=== PATIENT | male | born 1955 | race Caucasian/White ===

== ENCOUNTER 2021-02-24 15:18 | Inpatient (IN) | payer OTHER ==
[2021-02-24] MEDS ORDERED: ACETAMINOPHEN 500 MG TAB ONE ×2 (16:29→18:54)
--- NOTE | 2021-02-24 18:45 | RAD REPORT ---
EXAM DESCRIPTION: RAD - Chest Single View - 02/24/2021 6:29 pm CLINICAL HISTORY: Cough;Dyspnea COMPARISON: No comparisons FINDINGS: Patchy bile airspace disease predominantly left-sided. The heart size is within normal ibanez its.No acute osseous abnormality. No significant pleural effusions or pneumothorax. IMPRESSION: Moderate patchy bilateral airspace disease concerning for multifocal pneumonia, includin g Covid-19.
[2021-02-24 18:46] LABS: Absolute Lymphocytes (CBC) 0.4 K/uL (0.7-4.9); Basophils % 0.2 % (0-1.3); Hematocrit 45.1 % (39.6-49.0); Lymphocytes % 5.6 % (15.3-44.8); MPV 7.5 fL (7.6-11.3); Protime INR 1.13; RBC Red Blood Cell Count 5.21 M/uL (4.33-5.43)
[2021-02-24] MEDS ORDERED: FAMOTIDINE 20 MG/2 ML VIAL IV ONE (18:53)
[2021-02-24] MEDS ORDERED: CEFTRIAXONE/SWI 1gm 1 GM/10 ML SYR ONE (18:53)
[2021-02-24] MEDS ORDERED: ASPIRIN 325 MG TAB ONE (18:53)
[2021-02-24] MEDS ORDERED: AZITHROMYCIN 500 MG INJ IVPB ONE (18:53)
[2021-02-24] MEDS ORDERED: NA CHLORIDE 0.9% 1,000 ML ONE (18:54)
[2021-02-24 19:02] LABS: ALT/SGPT 46 U/L (12-78); AST/SGOT 65 U/L (15-37); Albumin 3.4 g/dL (3.4-5.0); Alkaline Phosphatase 56 U/L (45-117); BUN Blood Urea Nitrogen 27 mg/dL (7-18); Bicarbonate 26 mmol/L (21-32); Bilirubin Direct 0.5 mg/dL (0-0.2); Bilirubin Total 1.3 mg/dL (0.2-1.0); Ferritin 421.6 ng/mL (26-388); Glucose Level 100 mg/dL (74-106); Magnesium 2.5 mg/dL (1.8-2.4); NT PRO-BNP 116 pg/mL (<125); Potassium 4.1 mmol/L (3.5-5.1); Protein, Total 7.3 g/dL (6.4-8.2); Sodium Level 136 mmol/L (136-145); Troponin (Emerg Dept Use Only) < 0.02 ng/mL (0.0-0.045)
[2021-02-24 19:55] LABS: Blood Morphology Comment NOT SEEN (NOT SEEN); Platelet Estimate ADEQ; White Blood Cell Scan OK (OK)
--- NOTE | 2021-02-24 19:55 | ER ---
Nurse's Notes [facility] Name: Emiliano Verdugo Age: 65 yrs Sex: Male : 1955 Arrival Date: 02/24/2021 Time: 15:23 Bed 14 Private MD: Diagnosis: Coronavirus infection, unspecified;Pneumonia due to SARS-associated coronavirus;Fever, unspecified;Hypoxemia;Obesity, unspecified;Essential (primary) hypertension;Unspecified kidney failure-insufficency Presentation: 02/24 15:43 Chief complaint: Patient states: COVID + on 02/15/21 at [place], was going to get the jl7 Regeneron but Dr. Robertson said no because our oxygen was too low at 89% and he said to come to the ER to get admitted. Evelin the nurse at [facility] spoke with Dr. Grace and he wanted to send us home but they sent us here because we're dehydrated and our sats were low. Coronavirus screen: Vaccine status: Patient reports being unvaccinated. shortness of breath, Client reports previous positive COVID test result. Date of collection: February 15, 2021. Ebola Screen: No symptoms or risks identified at this time. Initial Sepsis Screen: Does the patient meet any 2 criteria? No. Patient's initial sepsis screen is negative. Does the patient have a suspected source of infection? No. Patient's initial sepsis screen is negative. Risk Assessment: Do you want to hurt yourself or someone else? Patient reports no desire to harm self or others. Onset of symptoms was February 16, 2021. 15:43 Method Of Arrival: Wheelchair jl7 15:43 Acuity: ARABELLA 3 jl7 Triage Assessment: 15:55 General: Appears in no apparent distress. uncomfortable, Behavior is calm, cooperative, jl7 appropriate for age. Pain: Denies pain. Neuro: Level of Consciousness is awake, alert, obeys commands, Oriented to person, place, time, situation. Cardiovascular: Patient's skin is warm and dry. Respiratory: Airway is patent Respiratory effort is even, unlabored, Respiratory pattern is symmetrical, tachypnea. Derm: Skin is pink, warm \T\ dry. Historical: - Allergies: 15:55 No Known Allergies; jl7 - PMHx: 15:55 Hypertensive disorder; jl7 - PSHx: 15:55 Bilateral Hip; Right knee; jl7 - Immunization history:: Client reports having NOT received the Covid vaccine. - Social history:: Smoking status: Patient denies any tobacco usage or history of. - Family history:: not pertinent. Screenin:16 Abuse screen: Denies threats or abuse. Denies injuries from another. Nutritional ms4 screening: No deficits noted. Tuberculosis screening: No symptoms or risk factors identified. Fall Risk None identified. Assessment: 23:14 Visitor restriction implemented due to in-person visitations may lead to the ms4 transmission of an infectious agent. Restricted visitation is valid for not more than 5 days unless renewed by the attending provider. The client's visitor/family were updated. Reassessment: Patient appears in no apparent distress at this time. No changes from previously documented assessment. Patient and/or family updated on plan of care and expected duration. Pain level reassessed. General: Appears in no apparent distress. Behavior is calm, cooperative. Pain: Denies pain. Neuro: No deficits noted. Cardiovascular: No deficits noted. Respiratory: Reports shortness of breath cough that is Airway is patent Breath sounds are diminished bilaterally. Vital Signs: 15:43 BP 112 / 69; Pulse 117; Resp 23; Temp 103; Pulse Ox 92% ; Weight 131.54 kg; Height 6 jl7 ft. 0 in. (182.88 cm); Pain 0/10; 23:15 BP 118 / 72; Pulse 84; Resp 22; Temp 98; Pulse Ox 92% on 4 lpm NC; Pain 0/10; ms4 15:43 Body Mass Index 39.33 (131.54 kg, 182.88 cm) jl7 ED Course: 15:23 Patient arrived in ED. ds1 15:48 Triage completed. jl7 15:55 Antipyretic given from triage as ordered by the ER provider. Arm band placed on right jl7 wrist. Patient placed in waiting room, Patient notified of wait time. 17:56 Nabor Alejo MD is Attending Physician. [facility] 18:05 Brenton Dave, BELKYS is Primary Nurse. ch5 18:22 Basic Metabolic Panel Sent. ch5 18:22 CBC with Diff Sent. ch5 18:22 LFT's Sent. ch5 18:22 Magnesium Sent. ch5 18:22 NT PRO-BNP Sent. ch5 18:22 PT-INR Sent. ch5 18:22 Troponin (emerg Dept Use Only) Sent. 5 18:28 XRAY Chest (1 view) In Process Unspecified. EDAR 19:52 Edilberto Augustin DO is Hospitalizing Provider. [facility] 23:16 No provider procedures requiring assistance completed. Inserted saline lock: 20 gauge ms4 in left antecubital area, using aseptic technique. Blood collected. Administered Medications: 18:52 Drug: Rocephin (cefTRIAXone) 1 grams Route: IV; Rate: per protocol; Site: right ch5 antecubital; 18:52 Drug: Pepcid (famotidine) 40 mg Route: IVP; Site: right antecubital; 5 18:52 Drug: Aspirin Chewable Tablet 324 mg Route: PO; 5 18:53 Drug: Tylenol 1000 mg Route: PO; ch5 18:53 Drug: NS 0.9% 1000 ml Route: IV; Rate: 125 ml/hr; Site: right antecubital; ch5 19:32 Drug: Zithromax (azithromycin) 500 mg Route: IVPB; Infused Over: 1 hrs; Site: right ms4 antecubital; 22:05 CANCELLED (Duplicate Order): SOLU-Medrol (methylPrednisoLONE) 125 mg IVP once ms4 22:45 Drug: Lovenox (enoxaparin) 100 mg Route: Sub-Q; Site: right lower abdomen; ms4 22:45 Drug: NS 0.9% 500 ml Route: IV; Rate: bolus; Site: left antecubital; ms4 Outcome: 19:54 Decision to Hospitalize by Provider. [facility] 02/26 15:00 Patient left the ED. 5 Signatures: Dispatcher [employer] EDAR Nabor Alejo MD MD cha Sanford, Demi ds1 Susy Niño RN RN jl7 Gabriela Talavera RN RN ms4 Brenton Dave RN RN ch5 Corrections: (The following items were deleted from the chart) 02/24 15:57 15:55 Allergies: Aspirin; josh moreno
--- NOTE | 2021-02-24 19:55 | EDPHYS ---
[facility] Name: Emiliano Verdugo Age: 65 yrs Sex: Male : 1955 Arrival Date: 02/24/2021 Time: 15:23 Bed 14 Private MD: ED Physician Nabor Alejo HPI: 02/24 19:45 This 65 yrs old Male presents to ER via Wheelchair with complaints of COVID+ sudha Low O2. 19:45 The patient has shortness of breath at rest, with light activity. Onset: The sudha symptoms/episode began/occurred 11 day(s) ago. Duration: The symptoms are continuous, and are steadily getting worse. The patient's shortness of breath has no apparent modifying factors. The patient or guardian reports cough, that is constant, difficulty breathing, flu symptoms, low-grade fever. Modifying factors: The symptoms are alleviated by remaining still, the symptoms are aggravated by nothing. activity, lying flat. Associated signs and symptoms: Pertinent positives: non-productive cough, dizziness, fever, nausea. Severity of symptoms: At their worst the symptoms were moderate in the emergency department the symptoms are worse mildly. The patient or guardian reports airway noise. Historical: - Allergies: 15:55 No Known Allergies; jl7 - PMHx: 15:55 Hypertensive disorder; jl7 - PSHx: 15:55 Bilateral Hip; Right knee; jl7 - Immunization history:: Client reports having NOT received the Covid vaccine. - Social history:: Smoking status: Patient denies any tobacco usage or history of. - Family history:: not pertinent. ROS: 19:45 Eyes: Negative for injury, pain, redness, and discharge, ENT: Negative for injury, sudha pain, and discharge, Neck: Negative for injury, pain, and swelling, Abdomen/GI: Negative for abdominal pain, nausea, vomiting, diarrhea, and constipation, Back: Negative for injury and pain, : Negative for injury, bleeding, discharge, and swelling, MS/Extremity: Negative for injury and deformity, Skin: Negative for injury, rash, and discoloration, Neuro: Negative for headache, weakness, numbness, tingling, and seizure, Psych: Negative for depression, anxiety, suicide ideation, homicidal ideation, and hallucinations, Allergy/Immunology: Negative for hives, rash, and allergies, Endocrine: Negative for neck swelling, polydipsia, polyuria, polyphagia, and marked weight changes, Hematologic/Lymphatic: Negative for swollen nodes, abnormal bleeding, and unusual bruising. 19:45 Constitutional: Positive for chills, fatigue, fever, malaise. 19:45 Cardiovascular: Positive for palpitations. 19:45 Respiratory: Positive for cough, orthopnea, shortness of breath, wheezing, expiratory. 19:45 Neuro: Positive for weakness. Exam: 19:45 Head/Face: Normocephalic, atraumatic. Eyes: Pupils equal round and reactive to light, sudha extra-ocular motions intact. Lids and lashes normal. Conjunctiva and sclera are non-icteric and not injected. Cornea within normal limits. Periorbital areas with no swelling, redness, or edema. ENT: Nares patent. No nasal discharge, no septal abnormalities noted. Tympanic membranes are normal and external auditory canals are clear. Oropharynx with no redness, swelling, or masses, exudates, or evidence of obstruction, uvula midline. Mucous membranes moist. Neck: Trachea midline, no thyromegaly or masses palpated, and no cervical lymphadenopathy. Supple, full range of motion without nuchal rigidity, or vertebral point tenderness. No Meningismus. Chest/axilla: Normal chest wall appearance and motion. Nontender with no deformity. No lesions are appreciated. Abdomen/GI: Soft, non-tender, with normal bowel sounds. No distension or tympany. No guarding or rebound. No evidence of tenderness throughout. Back: No spinal tenderness. No costovertebral tenderness. Full range of motion. Male : Normal genitalia with no discharge or lesions. Skin: Warm, dry with normal turgor. Normal color with no rashes, no lesions, and no evidence of cellulitis. MS/ Extremity: Pulses equal, no cyanosis. Neurovascular intact. Full, normal range of motion. Neuro: Awake and alert, GCS 15, oriented to person, place, time, and situation. Cranial nerves II-XII grossly intact. Motor strength 5/5 in all extremities. Sensory grossly intact. Cerebellar exam normal. Normal gait. Psych: Awake, alert, with orientation to person, place and time. Behavior, mood, and affect are within normal limits. 19:45 Constitutional: The patient appears febrile. 19:45 Cardiovascular: Rate: tachycardic, Rhythm: regular, Pulses: Pulses are 4+ in bilateral radial, brachial, femoral, popliteal, posterior tibial and and dorsalis pedis arteries.. Heart sounds: normal, Edema: is not appreciated, JVD: is not appreciated. 19:45 ECG was reviewed by the Attending Physician. 19:45 Respiratory: the patient does not display signs of respiratory distress, Respirations: labored breathing, that is mild, tachypnea, 23 Breath sounds: decreased breath sounds, that are mild, are scattered, rhonchi, that are mild, are scattered, stridor, is not appreciated, + upper airway congestion. wheezing: expiratory is scattered. 19:45 Musculoskeletal/extremity: DVT Exam: No signs of deep vein thrombosis. no pain, no swelling, no tenderness, negative Homans' sign noted on exam, no appreciated bluish discoloration, no erythema, no increased warmth. Vital Signs: 15:43 BP 112 / 69; Pulse 117; Resp 23; Temp 103; Pulse Ox 92% ; Weight 131.54 kg; Height 6 jl7 ft. 0 in. (182.88 cm); Pain 0/10; 23:15 BP 118 / 72; Pulse 84; Resp 22; Temp 98; Pulse Ox 92% on 4 lpm NC; Pain 0/10; ms4 15:43 Body Mass Index 39.33 (131.54 kg, 182.88 cm) jl7 MDM: 17:57 Patient medically screened. sudha 19:50 Differential diagnosis: Anemia Anxiety Reaction asthma, Bronchitis CHF exacerbation, sudha Chronic Obstructive Pulmonary Disease bronchitis, flu, URI, pneumonia, Pneumothorax pulmonary edema, reactive airway disease, Sepsis. Antibiotic administration: Rocephin and Zithromax given. The patient's [place] Deep Vein Thrombosis Score was calculated as follows: Heart Rate >100 BPM (1.5 Pts) Total Score: 0-2 Pts- Low Risk. Differential Diagnosis: Bronchitis Influenza Upper Respiratory Infection Pharyngitis Asthma Exacerbation Viral Syndrome Pneumonia. The patient's pulmonary embolism risk score was calculated as follows: the patients heart rate is greater than 100 beats per minute (1.5 Pts). Immunization status: Influenza vaccine: Data reviewed: vital signs, nurses notes, lab test result(s), EKG, radiologic studies, plain films. Data interpreted: monitoring tech: rate is 117 beats/min, rhythm is regular, Pulse oximetry: on room air is 92 %. Test interpretation: by ED physician or midlevel provider: ECG, plain radiologic studies. Counseling: I had a detailed discussion with the patient and/or guardian regarding: the historical points, exam findings, and any diagnostic results supporting the discharge/admit diagnosis, lab results, radiology results, the need for further work-up and treatment in the hospital. 02/24 17:59 Order name: Basic Metabolic Panel [facility] 02/24 17:59 Order name: CBC with Diff [facility] 02/24 17:59 Order name: LFT's [facility] 02/24 17:59 Order name: Magnesium [facility] 02/24 17:59 Order name: NT PRO-BNP [facility] 02/24 17:59 Order name: PT-INR [facility] 02/24 17:59 Order name: Troponin (emerg Dept Use Only) [facility] 02/24 17:59 Order name: CRP; Complete Time: 19:08 [facility] 02/24 17:59 Order name: Ferritin; Complete Time: 19:08 [facility] 02/24 17:59 Order name: D-Dimer; Complete Time: 19:13 [facility] 02/24 18:00 Order name: Basic Metabolic Panel; Complete Time: 19:08 [facility] 02/24 18:00 Order name: CBC with Automated Diff [facility] 02/24 18:00 Order name: Liver (Hepatic) Function; Complete Time: 19:08 [facility] 02/24 18:00 Order name: Magnesium; Complete Time: 19:08 [facility] 02/24 18:00 Order name: NT PRO-BNP; Complete Time: 19:08 [facility] 02/24 18:00 Order name: Protime (+INR); Complete Time: 19:13 [facility] 02/24 18:00 Order name: Troponin (Emerg Dept Use Only); Complete Time: 19:08 [facility] 02/24 19:55 Order name: CBC Smear Scan [facility] 02/25 02:41 Order name: CBC with Automated Diff [facility] 02/25 02:44 Order name: D-Dimer [facility] 02/25 02:58 Order name: Comprehensive Metabolic Panel [facility] 02/25 02:58 Order name: Lipid Profile [facility] 02/25 02:58 Order name: C-Reactive Protein [facility] 02/25 02:58 Order name: T4 Free [facility] 02/25 02:58 Order name: Magnesium [facility] 02/25 02:58 Order name: Thyroid Stimulating Hormone [facility] 02/25 02:58 Order name: Ferritin [facility] 02/26 03:13 Order name: CBC with Automated Diff [facility] 02/26 03:15 Order name: D-Dimer [facility] 02/26 03:29 Order name: Comprehensive Metabolic Panel [facility] 02/24 17:59 Order name: XRAY Chest (1 view); Complete Time: 18:47 [facility] 02/24 17:59 Order name: EKG; Complete Time: 18:01 [facility] 02/24 17:59 Order name: Cardiac monitoring; Complete Time: 19:24 [facility] 02/24 17:59 Order name: EKG - Nurse/Tech; Complete Time: 19:24 [facility] 02/24 17:59 Order name: IV Saline Lock; Complete Time: 18:23 [facility] 02/24 17:59 Order name: Labs collected and sent; Complete Time: 18:23 [facility] 02/24 17:59 Order name: O2 Per Protocol; Complete Time: 18:23 [facility] 02/24 17:59 Order name: O2 Sat Monitoring; Complete Time: 18:23 [facility] 02/26 03:29 Order name: C-Reactive Protein [facility] 02/26 03:29 Order name: Magnesium [facility] 02/26 03:29 Order name: Ferritin [facility] EC:45 Rate is 90 beats/min. Rhythm is regular. QRS [place] is Normal. VT interval is normal. QRS sudha interval is normal. QT interval is normal. No Q waves. T waves are Normal. No ST changes noted. Clinical impression: NSR w/ Non-specific ST/T Changes and No evidence of ischemia. Interpreted by me. Reviewed by me. Administered Medications: 18:52 Drug: Rocephin (cefTRIAXone) 1 grams Route: IV; Rate: per protocol; Site: right ch5 antecubital; 18:52 Drug: Pepcid (famotidine) 40 mg Route: IVP; Site: right antecubital; 5 18:52 Drug: Aspirin Chewable Tablet 324 mg Route: PO; ch5 18:53 Drug: Tylenol 1000 mg Route: PO; ch5 18:53 Drug: NS 0.9% 1000 ml Route: IV; Rate: 125 ml/hr; Site: right antecubital; 5 19:32 Drug: Zithromax (azithromycin) 500 mg Route: IVPB; Infused Over: 1 hrs; Site: right ms4 antecubital; 22:05 CANCELLED (Duplicate Order): SOLU-Medrol (methylPrednisoLONE) 125 mg IVP once ms4 22:45 Drug: Lovenox (enoxaparin) 100 mg Route: Sub-Q; Site: right lower abdomen; ms4 22:45 Drug: NS 0.9% 500 ml Route: IV; Rate: bolus; Site: left antecubital; ms4 Disposition Summary: 02/24/21 19:54 Hospitalization Ordered Hospitalization Status: Inpatient Admission sudha Provider: Edilberto Augustin cha Condition: Fair sudha Problem: new sudha Symptoms: have improved sudha Bed/Room Type: Standard sudha Location: [facility] ER HOLD(02/24/21 20:34) Room Assignment: ERHOLD-(02/24/21 20:34) Diagnosis - Coronavirus infection, unspecified sudha - Pneumonia due to SARS-associated coronavirus sudha - Fever, unspecified sudha - Hypoxemia sudha - Obesity, unspecified sudha - Essential (primary) hypertension sudha - Unspecified kidney failure - insufficency sudha Discharge Instructions: - Discharge Summary Sheet ch5 Forms: - Medication Reconciliation Form sudha - SBAR form ch5 Signatures: Dispatcher [employer] EDMS Daysi Tee RN RN mw Anderson, Corey, MD MD cha Attema, Lee, MEDICARE SALES EXECUTIVE-C MEDICARE SALES EXECUTIVE-Cla1 Susy Niño RN RN jl7 Gabriela Talavera RN RN ms4 Brenton Dave RN RN ch5 Corrections: (The following items were deleted from the chart) 15:57 15:55 Allergies: Aspirin; josh jl7 19:29 19:09 Chest For PE Angio+CT.RAD.BRZ ordered. [facility] EDMS 20:34 19:54 Telemetry/MedSurg (Inpatient) sudha mw 20:34 19:54 sudha mw 22:05 19:45 SOLU-Medrol (methylPrednisoLONE) 125 mg IVP once ordered. sudha ms4
--- NOTE | 2021-02-24 21:06 | P.HP ---
Certification for Inpatient Patient admitted to: Inpatient With expected LOS: >2 Midnights Patient will require the following post-hospital care: None Practitioner: I am a practitioner with admitting privileges, knowledge of patient current condition, hospital course, and medical plan of care. Services: Services provided to patient in accordance with Admission requirements found in Title 42 Section 412.3 of the Code of Federal Regulations Patient History Date of Service: 02/24/21 Reason for admission: COVID-19 pneumonia, PRIMITIVO History of Present Illness: 65-year-old male with history of hypertension presents emerged department for shortness of breath. Patient reports testing positive for Covid on 02/15/2021 with worsening shortness of breath since then. Patient was evaluated emergency department found to be mildly hypoxic on room air saturating around 88 to 89%. Labs were significant for D-dimer 845 creatinine 1.61 GFR 44 BUN 27 ferritin 421 C-reactive protein 69.9, patient was given ivermectin, IV steroids in the emergency department, no previous labs available for comparison regards to renal function, ED provider wishes to admit for further evaluation and management of acute kidney injury, COVID-19 pneumonia with hypoxia. - Past Medical/Surgical History -: Hypertension -: Bilateral hip surgery -: Right knee surgery Psychosocial/ Personal History: Lives at home with - Family History Father -: Cancer Mother -: Cancer - Social History Smoking Status: Never smoker Alcohol use: No CD- Drugs: No Caffeine use: Yes Place of Residence: Home Review of Systems 10-point ROS is otherwise unremarkable General: Weakness, Malaise Respiratory: Cough, Dry, Shortness of Breath Physical Examination - Physical Exam General: Alert, In no apparent distress, Oriented x3 HEENT: Atraumatic, PERRLA, Mucous membr. moist/pink, EOMI, Sclerae nonicteric Neck: Supple, 2+ carotid pulse no bruit, No LAD, Without JVD or thyroid abnormality Respiratory: Diminished Cardiovascular: Regular rate/rhythm, Normal S1 S2 Gastrointestinal: Normal bowel sounds, No tenderness Musculoskeletal: No tenderness Integumentary: No rashes Neurological: Normal gait, Normal speech, Normal strength at 5/5 x4 extr, Normal tone, Normal affect Lymphatics: No axilla or inguinal lymphadenopathy - Studies Laboratory Data (last 24 hrs) 02/24/21 18:11: PT 13.0 H, INR 1.13 02/24/21 18:11: WBC 6.40, Hgb 15.4, Hct 45.1, Plt Count 231 02/24/21 18:11: Sodium 136, Potassium 4.1, BUN 27 H, Creatinine 1.61 H, Glucose 100, Magnesium 2.5 H, Total Bilirubin 1.3 H, AST 65 H, ALT 46, Alkaline Phosphatase 56 Assessment and Plan - Plan Assessment: Acute hypoxic respiratory failure secondary to COVID-19 pneumonia Acute kidney injury Hypertension Plan: Acute hypoxic respiratory failure secondary to COVID-19 pneumonia: Continue with IV steroids, oral supplements, ivermectin, supplemental oxygen as needed, daily right saturations, room air saturations for home oxygen, anticipate discharge the next 24 to 48 hours on home oxygen. Appreciate further input from sujatha weems. Acute kidney injury: Likely related to dehydration, continue IV fluids, repeat morning labs. Consult nephrology as necessary for worsening renal function. Hypertension: Obtain and continue medications. DVT PPX: Lovenox Code status: Full Discharge Plan: Home Plan to discharge in: 48 Hours - Advance Directives Does patient have a Living Will: No Does patient have a Durable POA for Healthcare: No - Code Status/Comfort Care Code Status Assessed: Yes (Full code) Critical Care: No Time Spent Managing Pts Care (In Minutes): 55
[2021-02-24] MEDS ORDERED: ACETAMINOPHEN 500 MG TAB PO PRN (21:57)
[2021-02-24] MEDS: ASCORBIC ACID 500 MG TABLET PO SCH (21:57)
[2021-02-24] MEDS: METHYLPREDNISOLONE 40 MG INJ IV SCH (21:57)
[2021-02-24] MEDS ORDERED: BENZONATATE 100 MG CAP PO PRN (21:57)
[2021-02-24] MEDS: NA CHLORIDE 0.9% 1,000 ML IV SCH (21:57)
[2021-02-24] MEDS ORDERED: ONDANSETRON 4 MG/2 ML VIAL IV PRN (21:57)
[2021-02-24] MEDS ORDERED: ATORVASTATIN 20 MG TAB ONE (22:26)
[2021-02-24] MEDS ORDERED: ENOXAPARIN 100 MG/ML SYR SQ ONE (22:29)
[2021-02-24] MEDS: MELATONIN 5 MG TABLET PO PRN (23:46)
[2021-02-25] MEDS ORDERED: MELATONIN 5 MG TABLET PO ONE ×2 (00:05→21:53)
[2021-02-25 02:32] LABS: Absolute Lymphocytes (CBC) 0.3 K/uL (0.7-4.9); Lymphocytes % 5.1 % (15.3-44.8); MPV 7.4 fL (7.6-11.3); RBC Red Blood Cell Count 4.73 M/uL (4.33-5.43)
[2021-02-25 02:58] LABS: Albumin 2.8 g/dL (3.4-5.0); Bilirubin Total 0.9 mg/dL (0.2-1.0); C-Reactive Protein 70.2 mg/L (<3.00); Ferritin 401.6 ng/mL (26-388); Magnesium 2.5 mg/dL (1.8-2.4); Potassium 3.9 mmol/L (3.5-5.1); Protein, Total 6.3 g/dL (6.4-8.2); Thyroid Stimulating Hormone 0.555 uIU/mL (0.360-3.740)
[2021-02-25] MEDS ORDERED: POTASSIUM 25 MEQ EFFERV TAB PO ONE (06:06)
--- NOTE | 2021-02-25 06:36 | P.PN ---
Subjective Date of Service: 02/25/21 Chief Complaint: COVID-19 pneumonia, PRIMITIVO Subjective: Other (Overall stable. Currently on 4 L per nasal cannula) Physical Examination - Vital Signs Blood Pressure: 118/64 Pulse: 67 Respirations: 16 Pulse Ox (%): 93 - Studies Laboratory Data (last 24 hrs) 02/24/21 18:11: PT 13.0 H, INR 1.13 02/24/21 18:11: WBC 6.40, Hgb 15.4, Hct 45.1, Plt Count 231 02/24/21 18:11: Sodium 136, Potassium 4.1, BUN 27 H, Creatinine 1.61 H, Glucose 100, Magnesium 2.5 H, Total Bilirubin 1.3 H, AST 65 H, ALT 46, Alkaline Phosphatase 56 Assessment & Plan Discharge Plan: Home Plan to discharge in: 24 Hours Physician Review Additional Text: COVID: positive CXR: COMPARISON: No comparisons FINDINGS: Patchy bile airspace disease predominantly left-sided. The heart size is within normal limits.No acute osseous abnormality. No significant pleural effusions or pneumothorax. IMPRESSION: Moderate patchy bilateral airspace disease concerning for multifocal pneumonia, including Covid-19. Physical exam: General: Alert, In no apparent distress, Oriented x3 HEENT: Neck supple Respiratory: Clear. Currently on 4 L clear. Cardiovascular: Regular rate/rhythm, Normal S1 S2 Gastrointestinal: Normal bowel sounds, No tenderness Musculoskeletal: No tenderness Integumentary: No rashes Neurological: Normal gait, Normal speech, Normal strength at 5/5 x4 extr, Normal tone, Normal affect Lymphatics: No axilla or inguinal lymphadenopathy Impression: Acute hypoxic respiratory failure secondary to COVID-19 pneumonia Acute kidney injury Hypertension Plan: Acute hypoxic respiratory failure secondary to COVID-19 pneumonia: Patient remained stable at this time. Currently on 4 L per nasal cannula. Continue to wean off oxygen to maintain sats above 93%. Encouraged to spirometer, proning, lying on his side. Continue with IV steroids, oral supplements continue with pulmonology recommendations. Anticipate improvement over the next 24 hours. Acute kidney injury: This has improved with IV fluids. Patient taking good oral intake. Discontinue IV. Hypertension: Obtain and verify home medication. Currently stable off medication at this time. DVT PPX: Lovenox Code status: Full Discharge Plan: Home Time Spent Managing Pts Care (In Minutes): 55
[2021-02-25] MEDS ORDERED: THIAMINE HCL 100 MG TABLET ONE (07:37)
[2021-02-25] MEDS ORDERED: ASPIRIN 81 MG CHEWABLE TABLET ONE (07:37)
[2021-02-25] MEDS ORDERED: ASCORBIC ACID 500 MG TABLET ONE ×4 (07:37→21:53)
[2021-02-25] MEDS ORDERED: VITAMIN D 1000 UNIT TAB ONE ×2 (07:38→10:02)
[2021-02-25] MEDS ORDERED: METHYLPREDNISOLONE 40 MG INJ ONE ×2 (07:38→21:54)
[2021-02-25] MEDS ORDERED: ZINC SULFATE 220 MG CAP ONE (07:38)
[2021-02-25] MEDS ORDERED: ENOXAPARIN 40 MG/0.4 ML SQ ONE (07:39)
[2021-02-25] MEDS: NA CHLORIDE 0.9% 1,000 ML IV SCH (07:57)
[2021-02-25] MEDS: ASPIRIN EC 81 MG TAB PO SCH (08:59)
[2021-02-25] MEDS: THIAMINE HCL 100 MG TABLET PO SCH (09:00)
[2021-02-25] MEDS: VITAMIN D 1000 UNIT TAB PO SCH (09:00)
[2021-02-25] MEDS: ASCORBIC ACID 500 MG TABLET PO SCH ×4 (09:00→21:00)
[2021-02-25] MEDS: ZINC SULFATE 220 MG CAP PO SCH (09:00)
[2021-02-25] MEDS: METHYLPREDNISOLONE 40 MG INJ IV SCH (09:00)
[2021-02-25] MEDS: ENOXAPARIN 40 MG/0.4 ML SQ SCH (09:00)
[2021-02-25] MEDS ORDERED: NA CHLORIDE 0.9% 1,000 ML ONE (09:49)
--- NOTE | 2021-02-25 13:23 | P.PN ---
Subjective Date of Service: 02/25/21 Chief Complaint: COVID-19 pneumonia, PRIMITIVO Subjective: Improving (Doing well better) Review of Systems General: Weakness Respiratory: Shortness of Breath Physical Examination - Vital Signs Temperature: 98.9 F Blood Pressure: 127/69 Pulse: 78 Respirations: 20 Pulse Ox (%): 93 - Physical Exam General: Alert, Oriented x3, Cooperative - Studies Laboratory Data (last 24 hrs) 02/24/21 18:11: PT 13.0 H, INR 1.13 02/24/21 18:11: WBC 6.40, Hgb 15.4, Hct 45.1, Plt Count 231 02/24/21 18:11: Sodium 136, Potassium 4.1, BUN 27 H, Creatinine 1.61 H, Glucose 100, Magnesium 2.5 H, Total Bilirubin 1.3 H, AST 65 H, ALT 46, Alkaline Phosphatase 56 Assessment & Plan - Problems (Diagnosis) (1) COVID-19 Current Visit: Yes Status: Acute Plan: Age 65 AW COVID penumonia/ Doitn well/ labs reviewed/ Renal fucntion improving/ Plan to DC home/ Pt has Decadron and ivermectin at home
[2021-02-25] MEDS: METHYLPREDNISOLONE 125 MG INJ IV SCH (21:00)
[2021-02-25] MEDS ORDERED: ATORVASTATIN 20 MG TAB PO SCH (21:00)
[2021-02-25] MEDS: MELATONIN 5 MG TABLET PO PRN (21:32)
[2021-02-25] MEDS ORDERED: ATORVASTATIN 20 MG TAB ONE (21:53)
[2021-02-26 00:45] VITALS: BMI 39.0
[2021-02-26 03:09] LABS: Absolute Lymphocytes (CBC) 0.2 K/uL (0.7-4.9); Basophils % 0.5 % (0-1.3); Hematocrit 40.9 % (39.6-49.0); MPV 7.6 fL (7.6-11.3); RBC Red Blood Cell Count 4.77 M/uL (4.33-5.43)
[2021-02-26 03:28] LABS: Albumin 2.8 g/dL (3.4-5.0); Bilirubin Total 0.6 mg/dL (0.2-1.0); Ferritin 450.1 ng/mL (26-388); Magnesium 2.5 mg/dL (1.8-2.4); Potassium 4.3 mmol/L (3.5-5.1); Protein, Total 6.5 g/dL (6.4-8.2)
[2021-02-26 05:25] VITALS: BP 147/84; TEMP 98.9
--- NOTE | 2021-02-26 06:15 | P.PN ---
Subjective Date of Service: 02/26/21 Chief Complaint: COVID-19 pneumonia, PRIMITIVO Subjective: Improving (Currently on 3 L) Physical Examination - Vital Signs Temperature: 98.9 F Blood Pressure: 147/84 Pulse: 74 Respirations: 20 Pulse Ox (%): 94 Assessment & Plan Discharge Plan: Home Plan to discharge in: 24 Hours Physician Review Additional Text: COVID: positive CXR: COMPARISON: No comparisons FINDINGS: Patchy bile airspace disease predominantly left-sided. The heart size is within normal limits.No acute osseous abnormality. No significant pleural effusions or pneumothorax. IMPRESSION: Moderate patchy bilateral airspace disease concerning for multifocal pneumonia, including Covid-19. Physical exam: General: Alert, In no apparent distress, Oriented x3 HEENT: Neck supple Respiratory: Clear. Doing well. Currently on 3 L Cardiovascular: Regular rate/rhythm, Normal S1 S2 Gastrointestinal: Normal bowel sounds, No tenderness Musculoskeletal: No tenderness Integumentary: No rashes Neurological: Normal gait, Normal speech, Normal strength at 5/5 x4 extr, Normal tone, Normal affect Lymphatics: No axilla or inguinal lymphadenopathy Impression: Acute hypoxic respiratory failure secondary to COVID-19 pneumonia Acute kidney injury Hypertension Plan: Acute hypoxic respiratory failure secondary to COVID-19 pneumonia: Patient doing well at this time. Currently on 3 L. Will plan for discharge today. Acute kidney injury: This has improved with IV fluids. Patient taking good oral intake. Discontinue IV. Hypertension: Obtain and verify home medication. Currently stable off medication at this time. DVT PPX: Lovenox Code status: Full Discharge Plan: Home Time Spent Managing Pts Care (In Minutes): 55
[2021-02-26] MEDS ORDERED: METHYLPREDNISOLONE 125 MG INJ ONE (07:47)
[2021-02-26] MEDS ORDERED: ASPIRIN 81 MG CHEWABLE TABLET ONE (07:48)
[2021-02-26] MEDS ORDERED: ZINC SULFATE 220 MG CAP ONE (07:48)
[2021-02-26] MEDS ORDERED: ASCORBIC ACID 500 MG TABLET ONE ×2 (07:48→13:12)
[2021-02-26] MEDS ORDERED: THIAMINE HCL 100 MG TABLET ONE (07:48)
[2021-02-26] MEDS ORDERED: VITAMIN D 1000 UNIT TAB ONE (07:48)
[2021-02-26] MEDS ORDERED: ENOXAPARIN 40 MG/0.4 ML SQ ONE (07:49)
[2021-02-26] MEDS ORDERED: ACETAMINOPHEN 500 MG TAB ONE (08:08)
[2021-02-26] MEDS: ENOXAPARIN 40 MG/0.4 ML SQ SCH (08:37)
[2021-02-26] MEDS: ASPIRIN EC 81 MG TAB PO SCH (08:37)
[2021-02-26] MEDS: THIAMINE HCL 100 MG TABLET PO SCH (08:38)
[2021-02-26] MEDS: METHYLPREDNISOLONE 125 MG INJ IV SCH (08:38)
[2021-02-26] MEDS: ASCORBIC ACID 500 MG TABLET PO SCH ×2 (08:38→13:00)
[2021-02-26] MEDS: VITAMIN D 1000 UNIT TAB PO SCH (08:38)
[2021-02-26] MEDS: ZINC SULFATE 220 MG CAP PO SCH (08:38)
[2021-02-26 11:49] VITALS: O2SAT 93
--- NOTE | 2021-02-26 12:44 | P.DS ---
Admission Date: 02/24/21 Discharge Date: 02/26/21 Primary Care Provider: Dr. Teran Disposition: ROUTINE DISCHARGE Discharge Condition: GOOD Reason for Admission: COVID-19 pneumonia, PRIMITIVO Consultations: Pulmonary-Dr. Grace Procedures: COVID: positive CXR: COMPARISON: No comparisons FINDINGS: Patchy bile airspace disease predominantly left-sided. The heart size is within normal limits.No acute osseous abnormality. No significant pleural effusions or pneumothorax. IMPRESSION: Moderate patchy bilateral airspace disease concerning for multifocal pneumonia, including Covid-19. Medical problem list: Acute hypoxic respiratory failure secondary to COVID-19 pneumonia Acute kidney injury Hypertension Brief History of Present Illness: 65-year-old male with history of hypertension presented with shortness of breath. Patient tested positive for COVID-19 on 02/15/2021. His shortness of breath worsened. Patient was evaluated in the emergency room. Patient was admitted for Covid pneumonia with hypoxia. Acute renal injury also noted due to poor intake. Hospital Course: Patient presented with acute hypoxic respiratory failure secondary to COVID pneumonia. Patient was hospitalized. Patient required IV steroids with supplementation. Patient continued to do well with oxygen. His oxygen has been weaned down to 3 L. Patient able to ambulate. Shortness of breath improved. At discharge home oxygen will be arranged. At discharge patient will continue with home oxygen at 3 L. Maintain oxygenation above 93%. At discharge patient will also continue with prednisone 20 mg 1 pill twice daily for 7 days then 1 pill once daily for 7 days. The patient will continue with aspirin 81 mg daily. The patient will also continue with Tessalon Perles 1 pill 3 times a day as needed for cough. A limited supply will be provided. At discharge patient will continue with vitamin supplementation including vitamin C 500 mg 1 pill 3 times a day, vitamin D 2000 units daily, thiamine 100 mg 1 pill twice daily and zinc 200 mg daily. Patient will continue with CDC guidelines on isolation for at least 10 days. Patient will continue with proning, incentive spirometer use and lying on his side. Patient may need to limit his activities at home. At discharge patient will continue with handwashing, social distancing and facemask use. Recommend follow-up with pulmonology in 1 week to follow-up hospitaliza tion. Pulmonology will continue to help wean the patient off oxygen. Patient also presented with acute renal injury and dehydration. Patient was given IV fluids with improvement. Overall stable at this time. Recommend and encourage oral intake. Patient with history of hypertension. Patient remained off blood pressure medication due to acute renal injury and dehydration. Recommend to monitor blood pressure daily. If his blood pressures remain above 140/90 patient can be restarted on his medication. Maintain blood pressure less than 130/80. Further adjustment in medication can be done with the help of his PCP. May need to hold his blood pressure medication if blood pressure remains less than 110 systolic. Follow-up with PCP to further monitor and address. Vital Signs/Physical Exam: Temp Pulse Resp BP Pulse Ox 98.9 F 74 20 147/84 H 94 02/26/21 12:36 02/26/21 12:36 02/26/21 12:36 02/26/21 12:36 02/26/21 12:36 General: Alert, In no apparent distress, Oriented x3, Cooperative HEENT: Atraumatic Neck: Supple Respiratory: Clear to auscultation bilaterally Cardiovascular: Normal pulses, Regular rate/rhythm Gastrointestinal: Normal bowel sounds, No tenderness, No masses, No rebound, No guarding Musculoskeletal: No erythema, No tenderness, No warmth Integumentary: No tenderness/swelling Neurological: Normal speech, Normal strength at 5/5 x4 extr, Normal tone, Normal affect Laboratory Data at Discharge: WBC 8.80 K/uL (4.3-10.9) D 02/26/21 02:28 Hgb 14.2 g/dL (13.6-17.9) 02/26/21 02:28 Hct 40.9 % (39.6-49.0) 02/26/21 02:28 Plt Count 239 K/uL (152-406) D 02/26/21 02:28 PT 13.0 SECONDS (9.5-12.5) H 02/24/21 18:11 INR 1.13 02/24/21 18:11 Sodium 139 mmol/L (136-145) 02/26/21 02:28 Potassium 4.3 mmol/L (3.5-5.1) 02/26/21 02:28 BUN 24 mg/dL (7-18) H 02/26/21 02:28 Creatinine 0.96 mg/dL (0.55-1.3) 02/26/21 02:28 Glucose 144 mg/dL (74-106) H 02/26/21 02:28 Magnesium 2.5 mg/dL (1.8-2.4) H 02/26/21 02:28 Total Bilirubin 0.6 mg/dL (0.2-1.0) 02/26/21 02:28 AST 54 U/L (15-37) H 02/26/21 02:28 ALT 45 U/L (12-78) 02/26/21 02:28 Alkaline Phosphatase 53 U/L (45-117) 02/26/21 02:28 Triglycerides 134 mg/dL (<150) 02/25/21 02:19 Cholesterol 157 mg/dL (<200) 02/25/21 02:19 HDL Cholesterol 32 mg/dL (40-60) L 02/25/21 02:19 Cholesterol/HDL Ratio 4.91 02/25/21 02:19 Home Medications: Ascorbic Acid [Vitamin C*] 500 mg PO TID #90 tablet 02/26/21 Aspirin [Aspirin EC 81 MG] 81 mg PO DAILY #30 tablet. 02/26/21 Benzonatate [Tessalon Perle*] 100 mg PO TID PRN #15 cap 02/26/21 Cholecalciferol (Vitamin D3) [Vitamin D 1000 Iu Tab*] 2,000 unit PO DAILY #60 tab 02/26/21 Thiamine HCl [Vitamin B-1*] 100 mg PO BID #60 tablet 02/26/21 Zinc Sulfate [Zinc Sulfate*] 220 mg PO DAILY #30 cap 02/26/21 predniSONE [Prednisone*] 20 mg PO SEECOM #21 tab 02/26/21 New Medications: Aspirin [Aspirin EC 81 MG] 81 mg PO DAILY #30 tablet. predniSONE [Prednisone*] 20 mg PO SEECOM #21 tab Benzonatate [Tessalon Perle*] 100 mg PO TID PRN #15 cap PRN Reason: Cough Thiamine HCl [Vitamin B-1*] 100 mg PO BID #60 tablet Ascorbic Acid [Vitamin C*] 500 mg PO TID #90 tablet Cholecalciferol (Vitamin D3) [Vitamin D 1000 Iu Tab*] 2,000 unit PO DAILY #60 tab Zinc Sulfate [Zinc Sulfate*] 220 mg PO DAILY #30 cap Physician Discharge Instructions: Patient presented with acute hypoxic respiratory failure secondary to COVID pneumonia. Patient was hospitalized. Patient required IV steroids with supplementation. Patient continued to do well with oxygen. His oxygen has been weaned down to 3 L. Patient able to ambulate. Shortness of breath improved. At discharge home oxygen will be arranged. At discharge patient will continue with home oxygen at 3 L. Maintain oxygenation above 93%. At discharge patient will also continue with prednisone 20 mg 1 pill twice daily for 7 days then 1 pill once daily for 7 days. The patient will continue with aspirin 81 mg daily. The patient will also continue with Tessalon Perles 1 pill 3 times a day as needed for cough. A limited supply will be provided. At discharge patient will continue with vitamin supplementation including vitamin C 500 mg 1 pill 3 times a day, vitamin D 2000 units daily, thiamine 100 mg 1 pill twice daily and zinc 200 mg daily. Patient will continue with CDC guidelines on isolation for at least 10 days. Patient will continue with proning, incentive spirometer use and lying on his side. Patient may need to limit his activities at home. At discharge patient will continue with handwashing, social distancing and facemask use. Recommend follow-up with pulmonology in 1 week to follow-up hospitalization. Pulmonology will continue to help wean the patient off oxygen. Patient also presented with acute renal injury and dehydration. Patient was given IV fluids with improvement. Overall stable at this time. Recommend and encourage oral intake. Patient with history of hypertension. Patient remained off blood pressure medication due to acute renal injury and dehydration. Recommend to monitor blood pressure daily. If his blood pressures remain above 140/90 patient can be restarted on his medication. Maintain blood pressure less than 130/80. Further adjustment in medication can be done with the help of his PCP. May need to hold his blood pressure medication if blood pressure remains less than 110 systolic. Follow-up with PCP to further monitor and address. Diet: AHA Activity: Ad varsha Followup: Yang Teran MD [Primary Care Provider] - Time spent managing pt's care (in minutes): 55
[2021-02-26] MEDS ORDERED: IVERMECTIN 3 MG TABLET PO ONE (18:00)
== END 2021-02-26 15:14 | disposition home or self-care (01) | DRG 177 ==
LOC: ER 15:18 → ERHOLD 20:14
PROVIDERS: ADMIT Family Medicine; ATTEND Family Medicine
DX: U07.1 COVID-19 (principal); J12.82 Pneumonia due to coronavirus disease 2019; J96.01 Acute respiratory failure with hypoxia; N17.9 Acute kidney failure, unspecified; I10 Essential (primary) hypertension; E86.0 Dehydration
CPT/HCPCS: 36415; 71045; 80048; 80053; 80061; 80076; 82728; 83735; 83880; 84439; 84443; 84484; 85025; 85379; 85610; 86140; 93005; 94010; 94760; 96372; 96374; 96375; 99284; J0456; J0696; J1650; J2920; J2930; J7030

== ENCOUNTER 2021-02-28 11:30 | Inpatient (IN) | payer OTHER ==
[2021-02-28 12:11] LABS: Protime INR 1.12
--- NOTE | 2021-02-28 12:19 | EDPHYS ---
Physician Documentation [facility] Name: Emiliano Verdugo Age: 65 yrs Sex: Male : 1955 Arrival Date: 02/28/2021 Time: 11:46 Bed 18 Private MD: NATALI Physician Nabor Alejo HPI: 02/28 12:10 This 65 yrs old Male presents to ER via Unassigned with complaints of sob, sudha worse covid. 12:10 The patient has shortness of breath at rest, with light activity. Onset: The sudha symptoms/episode began/occurred 2 day(s) ago. Duration: The symptoms are continuous, and are steadily getting worse. The patient's shortness of breath is aggravated by coughing, light activity. The patient presents with a history of heart racing. Context: The symptoms occur with anxiety, with light activity, with strenuous activity. Duration: The patient or guardian reports multiple episodes, that wax and wane. Modifying factors: The symptoms are aggravated by change in position, light activity, strenuous activity. The patient or guardian reports cough, described as moderate, difficulty breathing, flu symptoms, arthralgias, low-grade fever, myalgias. - Immunization history:: Adult Immunizations up to date, Client reports receiving the 2nd dose of the Covid vaccine, unknown. - Family history:: not pertinent. - Social history:: Smoking status: Patient denies any tobacco usage or history of. ROS: 12:10 Eyes: Negative for injury, pain, redness, and discharge, ENT: Negative for injury, sudha pain, and discharge, Neck: Negative for injury, pain, and swelling, Cardiovascular: Negative for chest pain, palpitations, and edema, Abdomen/GI: Negative for abdominal pain, nausea, vomiting, diarrhea, and constipation, Back: Negative for injury and pain, : Negative for injury, bleeding, discharge, and swelling, MS/Extremity: Negative for injury and deformity, Neuro: Negative for headache, weakness, numbness, tingling, and seizure, Psych: Negative for depression, anxiety, suicide ideation, homicidal ideation, and hallucinations, Allergy/Immunology: Negative for hives, rash, and allergies, Endocrine: Negative for neck swelling, polydipsia, polyuria, polyphagia, and marked weight changes, Hematologic/Lymphatic: Negative for swollen nodes, abnormal bleeding, and unusual bruising. 12:10 Constitutional: Positive for fatigue. 12:10 Cardiovascular: Positive for palpitations. 12:10 Respiratory: Positive for cough, "sounds productive", shortness of breath, at rest. Exam: 12:10 Constitutional: This is a well developed, well nourished patient who is awake, alert, sudha and in no acute distress. Head/Face: Normocephalic, atraumatic. Eyes: Pupils equal round and reactive to light, extra-ocular motions intact. Lids and lashes normal. Conjunctiva and sclera are non-icteric and not injected. Cornea within normal limits. Periorbital areas with no swelling, redness, or edema. ENT: Nares patent. No nasal discharge, no septal abnormalities noted. Tympanic membranes are normal and external auditory canals are clear. Oropharynx with no redness, swelling, or masses, exudates, or evidence of obstruction, uvula midline. Mucous membranes moist. Neck: Trachea midline, no thyromegaly or masses palpated, and no cervical lymphadenopathy. Supple, full range of motion without nuchal rigidity, or vertebral point tenderness. No Meningismus. Chest/axilla: Normal chest wall appearance and motion. Nontender with no deformity. No lesions are appreciated. Abdomen/GI: Soft, non-tender, with normal bowel sounds. No distension or tympany. No guarding or rebound. No evidence of tenderness throughout. Back: No spinal tenderness. No costovertebral tenderness. Full range of motion. Male : Normal genitalia with no discharge or lesions. Skin: Warm, dry with normal turgor. Normal color with no rashes, no lesions, and no evidence of cellulitis. MS/ Extremity: Pulses equal, no cyanosis. Neurovascular intact. Full, normal range of motion. Neuro: Awake and alert, GCS 15, oriented to person, place, time, and situation. Cranial nerves II-XII grossly intact. Motor strength 5/5 in all extremities. Sensory grossly intact. Cerebellar exam normal. Normal gait. Psych: Awake, alert, with orientation to person, place and time. Behavior, mood, and affect are within normal limits. 12:10 Cardiovascular: Rate: tachycardic, actual rate is 124 bpm, Rhythm: regular, Pulses: Pulses are 4+ in bilateral radial, brachial, femoral, popliteal, posterior tibial and and dorsalis pedis arteries.. Heart sounds: normal, JVD: is not appreciated. Vital Signs: 11:45 BP 129 / 79; Pulse 110; Resp 33; Temp 98.3(TE); kh1 MDM: 11:51 Patient medically screened. [facility] 02/28 11:50 Order name: Basic Metabolic Panel [facility] 02/28 11:50 Order name: CBC with Diff [facility] 02/28 11:50 Order name: LFT's [facility] 02/28 11:50 Order name: Magnesium [facility] 02/28 11:50 Order name: NT PRO-BNP [facility] 02/28 11:50 Order name: PT-INR; Complete Time: 13:09 [facility] 02/28 11:50 Order name: Troponin (emerg Dept Use Only) [facility] 02/28 11:50 Order name: Lipase [facility] 02/28 11:50 Order name: Ferritin [facility] 02/28 11:50 Order name: CRP [facility] 02/28 11:51 Order name: Basic Metabolic Panel EDMS 02/28 13:39 Order name: C-Reactive Protein EDMS 02/28 13:39 Order name: C-Reactive Protein EDMS 02/28 13:39 Order name: CBC with Automated Diff EDMS 02/28 11:50 Order name: XRAY Chest (1 view) [facility] 02/28 13:39 Order name: CBC with Automated Diff EDMS 02/28 13:39 Order name: D-Dimer EDMS 02/28 13:39 Order name: D-Dimer EDMS 02/28 13:39 Order name: Ferritin EDMS 02/28 13:39 Order name: Ferritin EDMS 02/28 13:39 Order name: Lipid Profile EDMS 02/28 13:39 Order name: Lipid Profile EDMS 02/28 13:40 Order name: Manual Differential EDMS 02/28 14:06 Order name: Chest For Pe Angio EDMS 03/01 05:14 Order name: Comprehensive Metabolic Panel EDMS 03/01 05:14 Order name: Magnesium EDMS 03/01 07:26 Order name: RAD EDMS 02/28 11:50 Order name: EKG; Complete Time: 11:51 [facility] 02/28 11:50 Order name: Cardiac monitoring; Complete Time: 13:06 [facility] 02/28 11:50 Order name: EKG - Nurse/Tech [facility] 02/28 11:50 Order name: IV Saline Lock; Complete Time: 13:06 [facility] 02/28 11:50 Order name: Labs collected and sent; Complete Time: 13: [facility] 02/28 11:50 Order name: O2 Per Protocol; Complete Time: 13: [facility] 02/28 11:50 Order name: O2 Sat Monitoring; Complete Time: 13: [facility] 02/28 12:21 Order name: Labs - recollect needed; Complete Time: 13:07 [facility] 02/28 14:18 Order name: Respiratory Therapy Consult EDMS Administered Medications: 13:06 Drug: Pepcid (famotidine) 20 mg Route: IVP; Site: left hand; 1 13:06 Drug: SOLU-Medrol (methylPrednisoLONE) 125 mg Route: IVP; Site: left hand; kh1 13:07 Drug: NS 0.9% 1000 ml Route: IV; Rate: 125 ml/hr; Site: left hand; kh1 13:07 Drug: NS 0.9% 500 ml Route: IV; Rate: bolus; Site: left hand; 1 Disposition Summary: 02/28/21 12:18 Hospitalization Ordered Hospitalization Status: Inpatient Admission sudha Provider: Yehuda Beasley cha Condition: Fair sudha Problem: an ongoing problem sudha Symptoms: have worsened sudha Bed/Room Type: Standard [facility] Location: Telemetry/MedSurg (Inpatient)(03/01/21 17:40) abraham Room Assignment: 405(03/01/21 17:40) leonel Diagnosis - Coronavirus infection, unspecified sudha - Pneumonia due to SARS-associated coronavirus sudha - Tachycardia, unspecified sudha - Obesity, unspecified sudha - Hypoxemia sudha Forms: - Medication Reconciliation Form sudha - SBAR form sudha Signatures: Dispatcher [employer] EDSD Nabor Alejo MD MD cha Martinez, Eric em1 Elisa Simons RN RN Duran Robertson RN RN 1 Mini Morgan formerly [facility]: (The following items were deleted from the chart) 12:24 12:21 PMHx: Hypertensive disorder; 1 kh 12:24 12:21 PSHx: Bilateral Hip; 1 kh 12:24 12:21 PSHx: right knee; 1 kh1 14:06 13:41 CT CHEST,ABD W/WO ordered. EDSD EDSD 22:52 12:18 Telemetry/MedSurg (Inpatient) [facility] 22:52 12:18 [facility] cg 03/01 17:40 02/28 22:52 [facility] ja1 03/01 22:52 [facility] ja
--- NOTE | 2021-02-28 12:19 | ER ---
Nurse's Notes [facility] Name: Emiliano Verdugo Age: 65 yrs Sex: Male : 1955 Arrival Date: 02/28/2021 Time: 11:46 Bed 18 Private MD: Diagnosis: Coronavirus infection, unspecified;Pneumonia due to SARS-associated coronavirus;Tachycardia, unspecified;Obesity, unspecified;Hypoxemia Presentation: 02/28 12:11 Chief complaint: Patient states: Presented to ED with sob was just recently discharge [address] pt states sob is worse. also c/o diiarrhea. Coronavirus screen: Client denies travel out of the [place] in the last 14 days. Client presents with at least one sign or symptom that may indicate coronavirus-19. Standard/surgical mask placed on the client. Provider contacted for isolation considerations. Ebola Screen: No symptoms or risks identified at this time. Initial Sepsis Screen: Does the patient meet any 2 criteria? RR > 20 per min. HR > 90 bpm. Yes Does the patient have a suspected source of infection? Yes: Productive cough/pneumonia. 12:11 Method Of Arrival: EMS: [facility] 12:23 Risk Assessment: Do you want to hurt yourself or someone else? Patient reports no [facility] desire to harm self or others. Onset of symptoms was February 28, 2021. 12:23 Acuity: ARABELLA 2 [facility] 12:23 Acuity: ARABELLA 2 [facility] Triage Assessment: 12:16 General: Appears distressed, Behavior is calm, cooperative. Pain: Denies pain. [facility] - Immunization history:: Adult Immunizations up to date, Client reports receiving the 2nd dose of the Covid vaccine, unknown. - Family history:: not pertinent. - Social history:: Smoking status: Patient denies any tobacco usage or history of. Screenin:21 Abuse screen: Denies threats or abuse. Nutritional screening: No deficits noted. [facility] Tuberculosis screening: No symptoms or risk factors identified. Fall Risk IV access (20 points). Assessment: 12:21 General: Appears distressed, Behavior is calm, cooperative. Neuro: No deficits noted. [facility] Cardiovascular: No deficits noted. Respiratory: Reports shortness of breath cough that is productive, Airway is patent. Vital Signs: 11:45 BP 129 / 79; Pulse 110; Resp 33; Temp 98.3(TE); kh1 Vitals: 12:21 Cardiac Rhythm Assessment Sinus tach. kh1 ED Course: 11:45 Arm band placed on right wrist. kh1 11:46 Patient arrived in ED. iw 11:48 Nabor Alejo MD is Attending Physician. sudha 12:11 Mini Morgan is Primary Nurse. kh1 12:15 Yehuda Beasley MD is Hospitalizing Provider. sudha 12:21 Patient has correct armband on for positive identification. Bed in low position. Call kh1 light in reach. Side rails up X2. 12:21 No provider procedures requiring assistance completed. Inserted saline lock: 20 gauge kh1 in left hand, using aseptic technique. Blood collected. 12:24 Triage completed. kh1 12:44 XRAY Chest (1 view) In Process Unspecified. EDMS 13:07 Basic Metabolic Panel Sent. kh1 14:21 Lipid Profile Sent. kh1 14:21 Lipid Profile Sent. kh1 14:21 CBC with Automated Diff Sent. kh1 14:42 Chest For Pe Angio In Process Unspecified. EDMS Administered Medications: 13:06 Drug: Pepcid (famotidine) 20 mg Route: IVP; Site: left hand; kh1 13:06 Drug: SOLU-Medrol (methylPrednisoLONE) 125 mg Route: IVP; Site: left hand; kh1 13:07 Drug: NS 0.9% 1000 ml Route: IV; Rate: 125 ml/hr; Site: left hand; kh1 13:07 Drug: NS 0.9% 500 ml Route: IV; Rate: bolus; Site: left hand; [facility] Outcome: 12:18 Decision to Hospitalize by Provider. [facility] 09 18:30 Patient left the ED. iw Signatures: Dispatcher [employer] EDMS Nabor Alejo MD MD cha Williams, Irene, RN RN iw Mini Morgan [facility] Corrections: (The following items were deleted from the chart) 02/28 12:24 12:21 PMHx: Hypertensive disorder; kh 12:24 12:21 PSHx: Bilateral Hip; kh1 kh 12:24 12:21 PSHx: right knee; kh1 1
[2021-02-28 12:56] LABS: Absolute Lymphocytes (CBC) 0.1 K/uL (0.7-4.9); Basophils % 0.2 % (0-1.3); Hematocrit 43.1 % (39.6-49.0); Lymphocytes % 1.1 % (15.3-44.8); MPV 7.3 fL (7.6-11.3); RBC Red Blood Cell Count 4.96 M/uL (4.33-5.43)
[2021-02-28] MEDS ORDERED: METHYLPREDNISOLONE 125 MG INJ ONE (12:59)
[2021-02-28] MEDS ORDERED: NA CHLORIDE 0.9% 500 ML ONE (12:59)
[2021-02-28] MEDS ORDERED: FAMOTIDINE 20 MG/2 ML VIAL IV ONE (13:00)
[2021-02-28] MEDS ORDERED: NA CHLORIDE 0.9% 1,000 ML ONE (13:00)
--- NOTE | 2021-02-28 13:08 | RAD REPORT ---
EXAM DESCRIPTION: Murphy Single View02/28/2021 12:43 pm CLINICAL HISTORY: Cough COMPARISON: February 24, 2021 FINDINGS: Worsening in bilateral pulmonary opacities left greater than right The heart is borderline enlarged IMPRESSION: Worsening in bilateral pulmonary opacities which are moderate to marked likely pneumonia
[2021-02-28 13:24] LABS: ALT/SGPT 49 U/L (12-78); AST/SGOT 55 U/L (15-37); Albumin 2.6 g/dL (3.4-5.0); Alkaline Phosphatase 52 U/L (45-117); BUN Blood Urea Nitrogen 20 mg/dL (7-18); Bicarbonate 23 mmol/L (21-32); Bilirubin Direct 0.3 mg/dL (0-0.2); Bilirubin Total 0.8 mg/dL (0.2-1.0); Ferritin 663.1 ng/mL (26-388); Glucose Level 98 mg/dL (74-106); Lipase 159 U/L (73-393); Magnesium 2.5 mg/dL (1.8-2.4); NT PRO-BNP 866 pg/mL (<125); Potassium 4.1 mmol/L (3.5-5.1); Protein, Total 6.7 g/dL (6.4-8.2); Sodium Level 140 mmol/L (136-145); Troponin (Emerg Dept Use Only) < 0.02 ng/mL (0.0-0.045)
--- NOTE | 2021-02-28 13:37 | P.HP ---
Certification for Inpatient With expected LOS: <2 Midnights Patient will require the following post-hospital care: None Practitioner: I am a practitioner with admitting privileges, knowledge of patient current condition, hospital course, and medical plan of care. Services: Services provided to patient in accordance with Admission requirements found in Title 42 Section 412.3 of the Code of Federal Regulations <Pilar Acosta - Last Filed: 02/28/21 13:46> Patient History Date of Service: 02/28/21 - Past Medical/Surgical History -: Hypertension -: Bilateral hip surgery -: Right knee surgery Psychosocial/ Personal History: Lives at home with - Family History Father -: Cancer Mother -: Cancer - Social History Alcohol use: No CD- Drugs: No Caffeine use: Yes <Pilar Acosta - Last Filed: 02/28/21 13:46> Date of Service: 02/28/21 Primary Care Provider: unknown Reason for admission: Shortness of breath History of Present Illness: 65-year-old male presented to the emergency room with increasing shortness of breath. Patient was recently hospitalized for Covid pneumonia with hypoxia. Patient was sent home with medication and home oxygen. The patient left requiring about 3 to 4 L per nasal cannula. When he went home he did well but over the last day patient has noted increasing shortness of breath with increased oxygen requirement. Due to his increasing shortness of breath the patient came to the ER for further evaluation. In the ER patient was evaluated. Patient required 15 L per nasal cannula. CT scan shows no pulmonary embolism. CT showed marked bilateral Covid pneumonia. CT also showed a 6.5 cm ascending thoracic aneurysm. Patient stabilized in the ER patient patient admitted for further evaluation and treatment. Home medications list reviewed: Yes - Past Medical/Surgical History Diabetic: No - Social History Place of Residence: Home <Edilberto Augustin - Last Filed: 02/28/21 16:20> Allergies No Known Allergies Allergy (Unverified 02/24/21 21:56) Home Medications: Ascorbic Acid [Vitamin C*] 500 mg PO TID #90 tablet 02/26/21 Aspirin [Aspirin EC 81 MG] 81 mg PO DAILY #30 tablet. 02/26/21 Benzonatate [Tessalon Perle*] 100 mg PO TID PRN #15 cap 02/26/21 Cholecalciferol (Vitamin D3) [Vitamin D 1000 Iu Tab*] 2,000 unit PO DAILY #60 tab 02/26/21 Thiamine HCl [Vitamin B-1*] 100 mg PO BID #60 tablet 02/26/21 Zinc Sulfate [Zinc Sulfate*] 220 mg PO DAILY #30 cap 02/26/21 predniSONE [Prednisone*] 20 mg PO SEECOM #21 tab 02/26/21 Review of Systems General: Unremarkable Eyes: Unremarkable ENT: Unremarkable Respiratory: Shortness of Breath Cardiovascular: Unremarkable Gastrointestinal: Unremarkable Musculoskeletal: Unremarkable Integumentary: Unremarkable Neurological: Unremarkable <Pilar Acosta - Last Filed: 02/28/21 13:46> Physical Examination - Physical Exam General: Oriented x3, Mild distress HEENT: Atraumatic, Normocephalic, PERRLA, Mucous membr. moist/pink, Sclerae nonicteric Neck: Supple, 2+ carotid pulse no bruit, JVD not distended, Without JVD or thyroid abnormality Respiratory: Diminished Cardiovascular: No edema, Normal pulses, Regular rate/rhythm Gastrointestinal: Normal bowel sounds, No ascites, No tenderness, No masses, No rebound, No guarding Musculoskeletal: No clubbing, No swelling, No contractures, No erythema, No tenderness Integumentary: No rashes, No breakdown, No tenderness/swelling Neurological: Normal gait, Normal speech, Normal strength at 5/5 x4 extr - Studies Laboratory Data (last 24 hrs) 02/28/21 12:44: WBC 9.70, Hgb 14.6, Hct 43.1, Plt Count 287 D 02/28/21 12:44: Sodium 140, Potassium 4.1, BUN 20 H, Creatinine 0.91, Glucose 98, Magnesium 2.5 H, Total Bilirubin 0.8, AST 55 H, ALT 49, Alkaline Phosphatase 52, Lipase 159 02/28/21 12:00: PT 12.9 H, INR 1.12 <Pilar Acosta - Last Filed: 02/28/21 13:46> - Studies Laboratory Data (last 24 hrs) 02/28/21 12:44: WBC 9.70, Hgb 14.6, Hct 43.1, Plt Count 287 D 02/28/21 12:44: Sodium 140, Potassium 4.1, BUN 20 H, Creatinine 0.91, Glucose 98, Magnesium 2.5 H, Total Bilirubin 0.8, AST 55 H, ALT 49, Alkaline Phosphatase 52, Lipase 159 02/28/21 12:00: PT 12.9 H, INR 1.12 <Edilberto Augustin - Last Filed: 02/28/21 16:20> Assessment and Plan - Plan Assessment: 1. Acute hypoxia secondary to COVID-19 Plan: Acute hypoxia secondary to COVID-19: Continue oxygen 15 L via nasal cannula Pulmonology consult placed CT scan ordered to r/o PE Continue IV steroids Monitor inflammatory markers Repeat CXR GI prophylaxis DVT prophylaxis compression socks Monitor electrolytes Discharge Plan: Home Plan to discharge in: 48 Hours - Advance Directives Does patient have a Living Will: No Does patient have a Durable POA for Healthcare: No Time Spent Managing Pts Care (In Minutes): 55 <Pilar Acosta - Last Filed: 02/28/21 13:46> - Plan COVID: Positive CT scan: Negative for a pulmonary embolism. Moderate to marked bilateral ground-glass opacities within the lungs probably Covid pneumonia 6.5 centimeter aneurysm ascending thoracic aorta Impression: Dyspnea secondary to bilateral Covid pneumonia with hypoxia Hypertension CT scan showing 6.5 cm thoracic aortic aneurysm Plan: Dyspnea secondary to bilateral Covid pneumonia with hypoxia: Patient readmitted. We will continue with oxygen to maintain sats above 90%. Currently on 15 L. Continue IV steroids, supplements. Will start baricitinib if patient qualifies for protocol. Pulmonology consulted to further evaluate and address. Encourage incentive spirometer, proning, lying on his side. Continue to monitor CRP and ferritin. Recheck chest x-ray tomorrow. Continue to reassess daily. Hypertension: Blood pressure stable off medication at this time. We will monitor this closely. CT scan showing 6.5 cm thoracic aortic aneurysm: Continue to monitor closely. This can be further evaluated as an outpatient by cardiology. DVT prophylaxis: Lovenox CODE STATUS: Full code Advance care planning: Home at discharge <Edilberto Augustin - Last Filed: 02/28/21 16:20>
[2021-02-28 14:28] LABS: Blood Morphology Comment NOT SEEN (NOT SEEN); Platelet Estimate ADEQ
[2021-02-28] MEDS ORDERED: BARICITINIB 2 MG TABLET PO SCH (15:00)
--- NOTE | 2021-02-28 15:01 | RAD REPORT ---
EXAM DESCRIPTION: CT - Chest For Pe Angio - 02/28/2021 2:42 pm CLINICAL HISTORY: Chest pain COMPARISON: February 28, 2021 chest x-ray TECHNIQUE: Dynamically enhanced axial 3 mm thick images of the chest were obtained during administra tion of <100> mL Isovue 370 IV contrast. Coronal and oblique reconstruction images were generated and reviewed. Exam utilizes a protocol for optimal evaluation of pulmonary arterial tree. Maximum intensity projections 3D imaging was utilized All CT scans are performed using dose optimization technique as appropriate and may include automated exposure control or mA/KV adjustment according to patient size. FINDINGS: A pulmonary embolus is not seen. Ascending thoracic aortic AP diameter 6.5 centimeters A pleural effusion is not seen. A pericardial effusion is not seen. Moderate to marked bilateral ground-glass opacities within the lungs IMPRESSION: Negative for a pulmonary embolism. Moderate to marked bilateral ground-glass opacities within the lungs probably Covid pneumonia 6.5 centimeter aneurysm ascending thoracic aorta
[2021-02-28] MEDS ORDERED: ENOXAPARIN 40 MG/0.4 ML SQ SCH (17:00)
[2021-02-28 19:05] VITALS: BMI 38.6
[2021-02-28] MEDS ORDERED: ENOXAPARIN 40 MG/0.4 ML SQ ONE (19:44)
[2021-02-28] MEDS: ASCORBIC ACID 500 MG TABLET PO SCH (20:23)
[2021-02-28] MEDS: METHYLPREDNISOLONE 40 MG INJ IV SCH (20:23)
[2021-02-28] MEDS: FAMOTIDINE 20 MG/2 ML VIAL IV SCH (20:23)
[2021-02-28] MEDS ORDERED: METHYLPREDNISOLONE 40 MG INJ ONE (20:31)
[2021-02-28] MEDS ORDERED: ASCORBIC ACID 500 MG TABLET ONE (20:31)
[2021-02-28] MEDS ORDERED: FAMOTIDINE 20 MG TAB ONE (20:32)
[2021-03-01 04:47] LABS: Absolute Lymphocytes (CBC) 0.1 K/uL (0.7-4.9); Basophils % 0.7 % (0-1.3); Hematocrit 39.3 % (39.6-49.0); Lymphocytes % 2.1 % (15.3-44.8); MPV 7.7 fL (7.6-11.3); RBC Red Blood Cell Count 4.53 M/uL (4.33-5.43)
[2021-03-01 05:13] LABS: ALT/SGPT 47 U/L (12-78); AST/SGOT 47 U/L (15-37); Albumin 2.3 g/dL (3.4-5.0); Alkaline Phosphatase 47 U/L (45-117); BUN Blood Urea Nitrogen 21 mg/dL (7-18); Bicarbonate 25 mmol/L (21-32); Bilirubin Total 0.5 mg/dL (0.2-1.0); Glucose Level 145 mg/dL (74-106); HDL Cholesterol 36 mg/dL (40-60); LDL Cholesterol, Calculated 57 (<130); Magnesium 2.6 mg/dL (1.8-2.4); Potassium 4.7 mmol/L (3.5-5.1); Protein, Total 6.1 g/dL (6.4-8.2); Sodium Level 143 mmol/L (136-145)
--- NOTE | 2021-03-01 06:21 | P.PN ---
Subjective Date of Service: 03/01/21 Primary Care Provider: unknown Chief Complaint: Shortness of breath Subjective: Other (Overall stable. Currently on 15 L.) Physical Examination - Vital Signs Temperature: 97.6 F Blood Pressure: 117/49 Pulse: 66 Respirations: 22 Pulse Ox (%): 92 - Studies Laboratory Data (last 24 hrs) 02/28/21 12:44: WBC 9.70, Hgb 14.6, Hct 43.1, Plt Count 287 D 02/28/21 12:44: Sodium 140, Potassium 4.1, BUN 20 H, Creatinine 0.91, Glucose 98, Magnesium 2.5 H, Total Bilirubin 0.8, AST 55 H, ALT 49, Alkaline Phosphatase 52, Lipase 159 02/28/21 12:00: PT 12.9 H, INR 1.12 Assessment & Plan Discharge Plan: Home Plan to discharge in: Greater than 2 days Physician Review Additional Text: COVID: Positive CT scan: Negative for a pulmonary embolism. Moderate to marked bilateral ground-glass opacities within the lungs probably Covid pneumonia 6.5 centimeter aneurysm ascending thoracic aorta Physical Exam: General: Oriented x3, Mild distress HEENT: Atraumatic, Normocephalic, PERRLA, Mucous membr. moist/pink, Sclerae non icteric Neck: Supple, 2+ carotid pulse no bruit, JVD not distended, Without JVD or thyroid abnormality Respiratory: Diminished currently on 15 L Cardiovascular: No edema, Normal pulses, Regular rate/rhythm Gastrointestinal: Normal bowel sounds, No ascites, No tenderness, No masses, No rebound, No guarding Musculoskeletal: No clubbing, No swelling, No contractures, No erythema, No tenderness Integumentary: No rashes, No breakdown, No tenderness/swelling Neurological: Normal gait, Normal speech, Normal strength at 5/5 x4 extr Impression: Dyspnea secondary to bilateral Covid pneumonia with hypoxia Hypertension CT scan showing 6.5 cm thoracic aortic aneurysm Plan: Dyspnea secondary to bilateral Covid pneumonia with hypoxia: Patient was a readmission. Currently on 15 L. We will continue with oxygen to maintain sats above 90%. Continue IV steroids, supplements. Patient not a candidate for baricitinib. Will start remdesivir. This was discussed in detail with patient. Will monitor liver function tests while on medication. Pulmonology consulted to further evaluate and address. Encourage incentive spirometer, proning, lying on his side. Continue to monitor CRP and ferritin. I will turn to service of the hospitalist team tomorrow. I will go over the plan of care with him. Hypertension: Blood pressure stable off medication at this time. We will monitor this closely. CT scan showing 6.5 cm thoracic aortic aneurysm: Continue to monitor closely. This can be further evaluated as an outpatient by cardiology. DVT prophylaxis: Lovenox CODE STATUS: Full code Advance care planning: Home at discharge Time Spent Managing Pts Care (In Minutes): 55
--- NOTE | 2021-03-01 07:26 | RAD REPORT ---
EXAM DESCRIPTION: RAD - Chest Single View - 03/01/2021 6:59 am CLINICAL HISTORY: Follow-up up Covid COMPARISON: Chest Single View dated 02/28/2021; Chest Single View dated 02/24/2021; Chest For Pe Angio dated 02/28/2021 FINDINGS: Lines: None. Lungs: Moderate to severe bilateral airspace disease is marginally worsened changed compared with 09/2020. Pleural: No significant pleural effusions or pneumothorax. Cardiac: Similar cardiomegaly. Bones: No acute fractures. Other: IMPRESSION: Marginally worsened aeration of the lungs bilaterally with widespread bilateral airspace disease consistent with multifocal pneumonia.
[2021-03-01] MEDS ORDERED: ASPIRIN 81 MG CHEWABLE TABLET ONE (07:52)
[2021-03-01] MEDS ORDERED: METHYLPREDNISOLONE 125 MG INJ ONE (07:52)
[2021-03-01] MEDS ORDERED: ASCORBIC ACID 500 MG TABLET ONE ×2 (07:52→09:25)
[2021-03-01] MEDS ORDERED: THIAMINE HCL 100 MG TABLET ONE (07:53)
[2021-03-01] MEDS ORDERED: ZINC SULFATE 220 MG CAP ONE (07:53)
[2021-03-01] MEDS ORDERED: FAMOTIDINE 20 MG/2 ML VIAL IV ONE (07:53)
[2021-03-01] MEDS ORDERED: VITAMIN D 1000 UNIT TAB ONE (07:53)
[2021-03-01] MEDS: ASCORBIC ACID 500 MG TABLET PO SCH ×3 (09:00→20:27)
[2021-03-01] MEDS: VITAMIN D 1000 UNIT TAB PO SCH (09:00)
[2021-03-01] MEDS: THIAMINE HCL 100 MG TABLET PO SCH (09:00)
[2021-03-01] MEDS: ZINC SULFATE 220 MG CAP PO SCH (09:00)
[2021-03-01] MEDS: ASPIRIN EC 81 MG TAB PO SCH (09:00)
[2021-03-01] MEDS: METHYLPREDNISOLONE 40 MG INJ IV SCH ×2 (09:00→20:27)
[2021-03-01] MEDS: FAMOTIDINE 20 MG/2 ML VIAL IV SCH ×2 (09:00→20:27)
[2021-03-01] MEDS ORDERED: REMDESIVIR (EUA) 200 MG in NA CHLORIDE 0.9% 250 ML IV ONE (13:00)
--- NOTE | 2021-03-01 20:41 | P.CNS ---
Date of Consult: 03/01/21 Reason for Consult: COVID penumonia Primary Care Provider: unknown Chief Complaint: Shortness of breath History of Present Illness: Ae 65 Recently DC form [facility] Worseing SOB and COVID penumonia Allergies No Known Allergies Allergy (Unverified 02/24/21 21:56) Home Medications: Ascorbic Acid [Vitamin C*] 500 mg PO TID #90 tablet 02/26/21 Aspirin [Aspirin EC 81 MG] 81 mg PO DAILY #30 tablet. 02/26/21 Benzonatate [Tessalon Perle*] 100 mg PO TID PRN #15 cap 02/26/21 Cholecalciferol (Vitamin D3) [Vitamin D 1000 Iu Tab*] 2,000 unit PO DAILY #60 tab 02/26/21 Thiamine HCl [Vitamin B-1*] 100 mg PO BID #60 tablet 02/26/21 Zinc Sulfate [Zinc Sulfate*] 220 mg PO DAILY #30 cap 02/26/21 predniSONE [Prednisone*] 20 mg PO SEECOM #21 tab 02/26/21 - Past Medical/Surgical History Diabetic: No -: Hypertension -: Bilateral hip surgery -: Right knee surgery Psychosocial/ Personal History: Lives at home with - Family History Father Medical History: Cancer Mother Medical History: Cancer - Social History Alcohol use: No CD- Drugs: No Caffeine use: No Place of Residence: Home Review of Systems General: Weakness Respiratory: Shortness of Breath Physical Examination Temp Pulse Resp BP Pulse Ox 97.6 F 66 22 H 117/49 L 92 03/01/21 15:29 03/01/21 15:29 03/01/21 15:29 03/01/21 15:29 03/01/21 15:29 General: Alert, Oriented x3, Mild distress Respiratory: Clear to auscultation bilaterally Cardiovascular: No edema - Problems (1) COVID-19 Current Visit: No Status: Acute Plan: Ae 65 AW COVI penumonia and hypoxemia/Severe COVIDpenumonia/ Pt qualifies for Barctinib
[2021-03-02 04:16] LABS: Absolute Lymphocytes (CBC) 0.1 K/uL (0.7-4.9); Basophils % 0.4 % (0-1.3); Hematocrit 39.5 % (39.6-49.0); Lymphocytes % 0.8 % (15.3-44.8); MPV 7.5 fL (7.6-11.3); RBC Red Blood Cell Count 4.54 M/uL (4.33-5.43)
[2021-03-02 04:50] LABS: ALT/SGPT 41 U/L (12-78); AST/SGOT 53 U/L (15-37); Albumin 2.3 g/dL (3.4-5.0); Alkaline Phosphatase 48 U/L (45-117); BUN Blood Urea Nitrogen 26 mg/dL (7-18); Bicarbonate 23 mmol/L (21-32); Bilirubin Total 0.5 mg/dL (0.2-1.0); Ferritin 709.6 ng/mL (26-388); Glucose Level 124 mg/dL (74-106); Magnesium 2.4 mg/dL (1.8-2.4); Potassium 4.9 mmol/L (3.5-5.1); Protein, Total 5.9 g/dL (6.4-8.2); Sodium Level 143 mmol/L (136-145)
[2021-03-02] MEDS: VITAMIN D 1000 UNIT TAB PO SCH (07:59)
[2021-03-02] MEDS: THIAMINE HCL 100 MG TABLET PO SCH (07:59)
[2021-03-02] MEDS: ASCORBIC ACID 500 MG TABLET PO SCH ×3 (07:59→21:03)
[2021-03-02] MEDS: FAMOTIDINE 20 MG/2 ML VIAL IV SCH (07:59)
[2021-03-02] MEDS: ASPIRIN EC 81 MG TAB PO SCH (07:59)
[2021-03-02] MEDS: METHYLPREDNISOLONE 40 MG INJ IV SCH ×2 (07:59→21:03)
[2021-03-02] MEDS: ZINC SULFATE 220 MG CAP PO SCH (07:59)
[2021-03-02] MEDS ORDERED: REMDESIVIR (EUA) 100 MG in NA CHLORIDE 0.9% 250 ML IV SCH (09:00)
--- NOTE | 2021-03-02 11:16 | P.PN ---
Subjective Date of Service: 03/02/21 Primary Care Provider: unknown Chief Complaint: Coronavirus pneumonia Patient's still complains of shortness of breath on mild exertion on maximal therapy Review of Systems General: Weakness Respiratory: Shortness of Breath Physical Examination - Vital Signs Temperature: 97.9 F Blood Pressure: 143/75 Pulse: 89 Respirations: 24 Pulse Ox (%): 89 - Physical Exam General: Alert, Oriented x3, Cooperative, Acute distress Assessment & Plan - Problems (Diagnosis) (1) COVID-19 Current Visit: No Status: Acute Plan: Patient is doing well maximal therapy labs reviewed patient is now on Barcitinib and steroids changed to p.o. Xarelto low-dose Lasix
[2021-03-02] MEDS: BARICITINIB 2 MG TABLET PO SCH (11:36)
[2021-03-02] MEDS: FAMOTIDINE 20 MG TAB PO SCH ×2 (11:50→21:03)
[2021-03-02] MEDS: FUROSEMIDE 40 MG TABLET PO SCH (12:23)
[2021-03-02] MEDS: FENOFIBRATE 160 MG TAB PO SCH (16:08)
[2021-03-02] MEDS: RIVAROXABAN 20 MG TABLET PO SCH (16:08)
[2021-03-03 06:47] LABS: Absolute Lymphocytes (CBC) 0.2 K/uL (0.7-4.9); Hematocrit 39.8 % (39.6-49.0); Lymphocytes % 2.1 % (15.3-44.8); MPV 7.2 fL (7.6-11.3); RBC Red Blood Cell Count 4.58 M/uL (4.33-5.43)
[2021-03-03 07:18] LABS: Albumin 2.3 g/dL (3.4-5.0); Bilirubin Total 0.6 mg/dL (0.2-1.0); C-Reactive Protein 15.7 mg/L (<3.00); Ferritin 524.8 ng/mL (26-388); Magnesium 2.5 mg/dL (1.8-2.4); Potassium 5.4 mmol/L (3.5-5.1); Protein, Total 5.8 g/dL (6.4-8.2)
[2021-03-03] MEDS: ASCORBIC ACID 500 MG TABLET PO SCH ×3 (09:02→21:33)
[2021-03-03] MEDS: ZINC SULFATE 220 MG CAP PO SCH (09:02)
[2021-03-03] MEDS: ASPIRIN EC 81 MG TAB PO SCH (09:02)
[2021-03-03] MEDS: FUROSEMIDE 40 MG TABLET PO SCH (09:02)
[2021-03-03] MEDS: VITAMIN D 1000 UNIT TAB PO SCH (09:02)
[2021-03-03] MEDS: THIAMINE HCL 100 MG TABLET PO SCH (09:03)
[2021-03-03] MEDS: METHYLPREDNISOLONE 40 MG INJ IV SCH ×2 (09:04→21:33)
[2021-03-03] MEDS: FAMOTIDINE 20 MG TAB PO SCH ×2 (09:04→21:33)
[2021-03-03] MEDS: BARICITINIB 2 MG TABLET PO SCH (09:05)
--- NOTE | 2021-03-03 09:41 | P.PN ---
Date of Service: 03/03/21 Subjective Patient continues to do well with no new complaint Review of Systems 10-point ROS is otherwise unremarkable Physical Examination - Vital Signs reviewed - Physical Exam General: Alert, In no apparent distress, Oriented x3 Respiratory: Diminished Cardiovascular: Regular rate/rhythm, Normal S1 S2 Gastrointestinal: Normal bowel sounds, No tenderness Neurological: Normal speech, Normal tone, Normal affect Assessment & Plan - Problems (Diagnosis) (1) Pneumonia due to COVID-19 virus Current Visit: Yes Status: Acute (2) Hypoxemia Current Visit: Yes Status: Acute (3) Morbid obesity with BMI of 40.0-44.9, adult Current Visit: Yes Status: Acute Plan 1. Continue with IV steroids 2. Monitor inflammatory markers 3. Repeat chest x-ray 4. O2 per protocol 5. Pulmonary consultation appreciated 6. Continue with albuterol inhaler therapy 7. Monitor LFTs 8. GI and DVT prophylaxis
--- NOTE | 2021-03-03 09:41 | P.PN ---
Subjective Date of Service: 03/02/21 Patient is clinically doing better. He feels like he is improving. He still is requiring 15 L old high-flow oxygen. Continue try to wean him off the oxygen at this time. Encourage him to stay out of bed as much as he can tolerate. Review of Systems 10-point ROS is otherwise unremarkable Physical Examination - Vital Signs Temperature: 98.4 F Blood Pressure: 137/67 Pulse: 90 Respirations: 25 Pulse Ox (%): 87 - Physical Exam General: Alert, In no apparent distress, Oriented x3 HEENT: Atraumatic, PERRLA, EOMI Neck: Supple, JVD not distended Respiratory: Diminished Cardiovascular: Regular rate/rhythm, Normal S1 S2 Gastrointestinal: Normal bowel sounds, No tenderness Musculoskeletal: No tenderness Integumentary: No rashes Neurological: Normal speech, Normal tone, Normal affect Lymphatics: No axilla or inguinal lymphadenopathy - Studies Medications List Reviewed: Yes Assessment & Plan - Problems (Diagnosis) (1) Pneumonia due to COVID-19 virus Current Visit: Yes Status: Acute (2) Hypoxemia Current Visit: Yes Status: Acute (3) Morbid obesity with BMI of 40.0-44.9, adult Current Visit: Yes Status: Acute - Plan 1. Continue with IV steroids 2. Monitor inflammatory markers 3. Repeat chest x-ray 4. O2 per protocol 5. Pulmonary consultation 6. Continue with albuterol inhaler therapy; also supportive care 7. Monitor LFTs 8. GI and DVT prophylaxis - Advance Directives Does patient have a Living Will: No Does patient have a Durable POA for Healthcare: No
[2021-03-03] MEDS ORDERED: FUROSEMIDE 40 MG/4 ML VIAL IV ONE (11:34)
[2021-03-03] MEDS: RIVAROXABAN 20 MG TABLET PO SCH (17:56)
[2021-03-03] MEDS: FENOFIBRATE 160 MG TAB PO SCH (17:56)
[2021-03-04] MEDS: ASPIRIN EC 81 MG TAB PO SCH (09:18)
[2021-03-04] MEDS: VITAMIN D 1000 UNIT TAB PO SCH (09:18)
[2021-03-04] MEDS: ASCORBIC ACID 500 MG TABLET PO SCH ×3 (09:19→20:37)
[2021-03-04] MEDS: METHYLPREDNISOLONE 40 MG INJ IV SCH ×2 (09:19→17:47)
[2021-03-04] MEDS: FUROSEMIDE 40 MG TABLET PO SCH (09:19)
[2021-03-04] MEDS: ZINC SULFATE 220 MG CAP PO SCH (09:20)
[2021-03-04] MEDS: THIAMINE HCL 100 MG TABLET PO SCH (09:20)
[2021-03-04] MEDS: FAMOTIDINE 20 MG TAB PO SCH ×2 (09:20→17:44)
[2021-03-04] MEDS: BARICITINIB 2 MG TABLET PO SCH (09:25)
--- NOTE | 2021-03-04 13:18 | P.PN ---
Subjective Date of Service: 03/04/21 Primary Care Provider: unknown Chief Complaint: Coronavirus pneumonia Feeling better improving Review of Systems General: Weakness Respiratory: Shortness of Breath Physical Examination - Vital Signs Temperature: 99.3 F Blood Pressure: 139/77 Pulse: 128 Respirations: 26 Pulse Ox (%): 85 - Physical Exam General: Alert, Oriented x3, Cooperative, Mild distress - Studies Medications List Reviewed: Yes Assessment & Plan - Problems (Diagnosis) (1) COVID-19 Current Visit: No Status: Acute Plan: Respfailure/improving/ hypeerkalemia repeat Basic chem/ on 15 l
--- NOTE | 2021-03-04 13:47 | RAD REPORT ---
EXAM DESCRIPTION: RAD - Chest Single View - 03/04/2021 1:36 pm CLINICAL HISTORY: resp failure COMPARISON: Chest Single View dated 03/01/2021; Chest Single View dated 02/28/2021; Chest Single View da luis daniel 02/24/2021 FINDINGS: Lines: None. Lungs: Widespread bilateral airspace disease which is grossly similar comparing with the chest radiog raph from 03/01/2021 . Pleural: No significant pleural effusions or pneumothorax. Cardiac: The heart size is within normal limits. Bones: No acute fractures. Other: IMPRESSION: Grossly similar severe widespread bilateral airspace disease when taking into account so me differences in lung volumes.
[2021-03-04 14:37] LABS: Potassium 4.2 mmol/L (3.5-5.1)
[2021-03-04] MEDS ORDERED: METHYLPREDNISOLONE 125 MG INJ IV STA (17:14)
[2021-03-04] MEDS: FENOFIBRATE 160 MG TAB PO SCH (17:44)
[2021-03-04] MEDS: RIVAROXABAN 20 MG TABLET PO SCH (17:44)
[2021-03-05] MEDS: VITAMIN D 1000 UNIT TAB PO SCH (10:28)
[2021-03-05] MEDS: ASPIRIN EC 81 MG TAB PO SCH (10:28)
[2021-03-05] MEDS: THIAMINE HCL 100 MG TABLET PO SCH (10:29)
[2021-03-05] MEDS: FUROSEMIDE 40 MG TABLET PO SCH (10:29)
[2021-03-05] MEDS: METHYLPREDNISOLONE 40 MG INJ IV SCH ×2 (10:29→20:24)
[2021-03-05] MEDS: FAMOTIDINE 20 MG TAB PO SCH ×2 (10:29→20:24)
[2021-03-05] MEDS: ZINC SULFATE 220 MG CAP PO SCH (10:29)
[2021-03-05] MEDS: ASCORBIC ACID 500 MG TABLET PO SCH ×3 (10:29→20:25)
[2021-03-05] MEDS: BARICITINIB 2 MG TABLET PO SCH (10:35)
--- NOTE | 2021-03-05 10:46 | P.PN ---
Date of Service: 03/04/21 Subjective Still with respiratory distress Review of Systems 10-point ROS is otherwise unremarkable Physical Examination - Vital Signs reviewed - Physical Exam General: Alert, In no apparent distress, Oriented x3 Respiratory: Diminished Cardiovascular: Regular rate/rhythm, Normal S1 S2 Gastrointestinal: Normal bowel sounds, No tenderness Neurological: Normal speech, Normal tone, Normal affect Assessment & Plan - Problems (Diagnosis) (1) Pneumonia due to COVID-19 virus Current Visit: Yes Status: Acute (2) Hypoxemia Current Visit: Yes Status: Acute (3) Morbid obesity with BMI of 40.0-44.9, adult Current Visit: Yes Status: Acute Plan Continue with plan of care 1. Continue with IV steroids 2. Monitor inflammatory markers 3. Repeat chest x-ray 4. O2 per protocol 5. Pulmonary consultation appreciated 6. Continue with albuterol inhaler therapy 7. Monitor LFTs 8. GI and DVT prophylaxis
--- NOTE | 2021-03-05 10:47 | P.PN ---
Date of Service: 03/05/21 Subjective Still with respiratory distress Review of Systems 10-point ROS is otherwise unremarkable Physical Examination - Vital Signs reviewed - Physical Exam General: Alert, In no apparent distress, Oriented x3 Respiratory: Diminished Cardiovascular: Regular rate/rhythm, Normal S1 S2 Gastrointestinal: Normal bowel sounds, No tenderness Neurological: Normal speech, Normal tone, Normal affect Assessment & Plan - Problems (Diagnosis) (1) Pneumonia due to COVID-19 virus Current Visit: Yes Status: Acute (2) Hypoxemia Current Visit: Yes Status: Acute (3) Morbid obesity with BMI of 40.0-44.9, adult Current Visit: Yes Status: Acute Plan Continue with plan of care 1. Continue with IV steroids 2. Monitor inflammatory markers 3. Repeat chest x-ray 4. O2 per protocol 5. Pulmonary consultation appreciated 6. Continue with albuterol inhaler therapy 7. GI and DVT prophylaxis
[2021-03-05] MEDS: RIVAROXABAN 20 MG TABLET PO SCH (16:51)
[2021-03-05] MEDS: FENOFIBRATE 160 MG TAB PO SCH (16:51)
[2021-03-06] MEDS: METHYLPREDNISOLONE 40 MG INJ IV SCH ×2 (08:53→20:15)
[2021-03-06] MEDS: FUROSEMIDE 40 MG TABLET PO SCH (08:53)
[2021-03-06] MEDS: BARICITINIB 2 MG TABLET PO SCH (08:53)
[2021-03-06] MEDS: VITAMIN D 1000 UNIT TAB PO SCH (08:53)
[2021-03-06] MEDS: FAMOTIDINE 20 MG TAB PO SCH ×2 (08:53→20:10)
[2021-03-06] MEDS: ASPIRIN EC 81 MG TAB PO SCH (08:53)
[2021-03-06] MEDS: ASCORBIC ACID 500 MG TABLET PO SCH ×3 (08:54→20:10)
[2021-03-06] MEDS: THIAMINE HCL 100 MG TABLET PO SCH (08:54)
[2021-03-06] MEDS: ZINC SULFATE 220 MG CAP PO SCH (08:54)
--- NOTE | 2021-03-06 12:26 | P.PN ---
Subjective Date of Service: 03/06/21 Primary Care Provider: unknown Chief Complaint: Coronavirus pneumonia Patient is feeling better he is very alert responsive cooperative still on high flow oxygen Review of Systems Respiratory: Shortness of Breath Physical Examination - Vital Signs Temperature: 97.4 F Blood Pressure: 124/59 Pulse: 80 Respirations: 24 Pulse Ox (%): 95 - Physical Exam General: Alert, In no apparent distress, Cooperative - Studies Medications List Reviewed: Yes Assessment & Plan - Problems (Diagnosis) (1) COVID-19 Current Visit: No Status: Acute Plan: Respiratory failure patient is improving on max therapy with low-dose Lasix he is on 15 L nasal cannula oxygen with a sat of 92%
[2021-03-06] MEDS: FENOFIBRATE 160 MG TAB PO SCH (17:00)
[2021-03-06] MEDS: RIVAROXABAN 20 MG TABLET PO SCH (17:00)
[2021-03-07] MEDS: ASCORBIC ACID 500 MG TABLET PO SCH ×3 (09:00→21:21)
[2021-03-07] MEDS: VITAMIN D 1000 UNIT TAB PO SCH (09:08)
[2021-03-07] MEDS: ZINC SULFATE 220 MG CAP PO SCH (09:09)
[2021-03-07] MEDS: FAMOTIDINE 20 MG TAB PO SCH ×2 (09:09→21:21)
[2021-03-07] MEDS: THIAMINE HCL 100 MG TABLET PO SCH (09:09)
[2021-03-07] MEDS: METHYLPREDNISOLONE 40 MG INJ IV SCH ×2 (09:09→21:21)
[2021-03-07] MEDS: ASPIRIN EC 81 MG TAB PO SCH (09:10)
[2021-03-07] MEDS: FUROSEMIDE 40 MG TABLET PO SCH (09:10)
[2021-03-07] MEDS: BARICITINIB 2 MG TABLET PO SCH (09:15)
[2021-03-07 14:43] LABS: C-Reactive Protein 25.1 mg/L (<3.00); Ferritin 929.9 ng/mL (26-388); Potassium 4.5 mmol/L (3.5-5.1)
[2021-03-07 14:59] LABS: Absolute Lymphocytes (CBC) 0.2 K/uL (0.7-4.9); Basophils % 0.5 % (0-1.3); Hematocrit 47.9 % (39.6-49.0); Lymphocytes % 1.6 % (15.3-44.8); MPV 8.1 fL (7.6-11.3); RBC Red Blood Cell Count 5.56 M/uL (4.33-5.43)
[2021-03-07] MEDS: RIVAROXABAN 20 MG TABLET PO SCH (16:34)
[2021-03-07] MEDS: FENOFIBRATE 160 MG TAB PO SCH (16:34)
[2021-03-07 20:01] LABS: Blood Morphology Comment NOT SEEN (NOT SEEN); Platelet Estimate ADEQ; White Blood Cell Scan OK (OK)
--- NOTE | 2021-03-08 08:39 | RAD REPORT ---
EXAM DESCRIPTION: RAD - Chest Single View - 03/08/2021 6:08 am CLINICAL HISTORY: Pneumonia Chest pain. COMPARISON: Chest Single View dated 03/04/2021; Chest Single View dated 03/01/2021; Chest Single View da luis daniel 02/28/2021; Chest Single View dated 02/24/2021 FINDINGS: Portable technique limits examination quality. Since 03/04/2021, mild worsening of confluent bilateral pulmonary opacities noted. The heart is rj l in size. No displaced fractures. IMPRESSION: Mild worsening in lung aeration is seen since comparative examination.
[2021-03-08] MEDS: BARICITINIB 2 MG TABLET PO SCH (09:24)
[2021-03-08] MEDS: THIAMINE HCL 100 MG TABLET PO SCH (09:25)
[2021-03-08] MEDS: ASPIRIN EC 81 MG TAB PO SCH (09:25)
[2021-03-08] MEDS: METHYLPREDNISOLONE 40 MG INJ IV SCH ×2 (09:25→21:58)
[2021-03-08] MEDS: FUROSEMIDE 40 MG TABLET PO SCH (09:25)
[2021-03-08] MEDS: ZINC SULFATE 220 MG CAP PO SCH (09:26)
[2021-03-08] MEDS: ASCORBIC ACID 500 MG TABLET PO SCH ×3 (09:26→21:56)
[2021-03-08] MEDS: FAMOTIDINE 20 MG TAB PO SCH ×2 (09:26→21:55)
[2021-03-08] MEDS: VITAMIN D 1000 UNIT TAB PO SCH (09:30)
--- NOTE | 2021-03-08 11:30 | P.PN ---
Subjective Date of Service: 03/08/21 Primary Care Provider: unknown Chief Complaint: Respiratory failure Patient is subjectively feeling better still on 80% FiO2 Review of Systems Respiratory: Shortness of Breath Physical Examination - Vital Signs Temperature: 97.6 F Blood Pressure: 112/60 Pulse: 95 Respirations: 18 Pulse Ox (%): 98 - Physical Exam General: Alert, Oriented x3, Cooperative - Studies Medications List Reviewed: Yes Assessment & Plan - Problems (Diagnosis) (1) COVID-19 Current Visit: No Status: Acute Plan: Respiratory failure is on 80% FiO2 reduced dose of Solu-Medrol to 40 IV twice daily continue with Barcitinib patient is on low-dose Lasix
--- NOTE | 2021-03-08 12:30 | P.PN ---
Date of Service: 03/08/21 Subjective Patient continues to improve. Remains on 10 L oxygen. Clinical symptoms stable. Review of Systems 10-point ROS is otherwise unremarkable Physical Examination - Vital Signs reviewed - Physical Exam General: Alert, In no apparent distress, Oriented x3 Respiratory: Diminished Cardiovascular: Regular rate/rhythm, Normal S1 S2 Gastrointestinal: Normal bowel sounds, No tenderness Neurological: Normal speech, Normal tone, Normal affect Assessment & Plan - Problems (Diagnosis) (1) Pneumonia due to COVID-19 virus Current Visit: Yes Status: Acute (2) Hypoxemia Current Visit: Yes Status: Acute (3) Morbid obesity with BMI of 40.0-44.9, adult Current Visit: Yes Status: Acute Plan Continue with plan of care 1. Continue with IV steroids 2. Monitor labs 3. Repeat chest x-ray if worsens 4. O2 per protocol; will decrease wall oxygen as improves 5. Pulmonary consultation appreciated 6. Continue with albuterol inhaler therapy 7. GI and DVT prophylaxis
--- NOTE | 2021-03-08 12:33 | P.PN ---
Date of Service: 03/07/21 Subjective Pts respiratory status finally showing improvements; feeling better; down to 12L from 15L Review of Systems 10-point ROS is otherwise unremarkable Physical Examination - Vital Signs reviewed - Physical Exam General: Alert, In no apparent distress, Oriented x3 Respiratory: Diminished; cont wheezing Cardiovascular: Regular rate/rhythm, Normal S1 S2 Gastrointestinal: Normal bowel sounds, No tenderness Neurological: No focal defecits Assessment & Plan - Problems (Diagnosis) (1) Pneumonia due to COVID-19 virus Current Visit: Yes Status: Acute (2) Hypoxemia Current Visit: Yes Status: Acute (3) Morbid obesity with BMI of 40.0-44.9, adult Current Visit: Yes Status: Acute Plan: Continue with plan of care 1. Continue with IV steroids 2. Monitor labs 3. Repeat chest x-ray if worsens 4. O2 per protocol; will decrease wall oxygen as improves 5. Pulmonary consultation appreciated 6. Continue with albuterol inhaler therapy 7. GI and DVT prophylaxis
--- NOTE | 2021-03-08 12:36 | P.PN ---
Date of Service: 03/06/21 Subjective Pts respiratory status with no new changes; still on 15L Review of Systems 10-point ROS is otherwise unremarkable Physical Examination - Vital Signs reviewed - Physical Exam General: Alert, In no apparent distress, Oriented x3 Respiratory: Diminished; cont wheezing Cardiovascular: Regular rate/rhythm, Normal S1 S2 Gastrointestinal: Normal bowel sounds, No tenderness Neurological: No focal defecits Assessment & Plan - Problems (Diagnosis) (1) Pneumonia due to COVID-19 virus Current Visit: Yes Status: Acute (2) Hypoxemia Current Visit: Yes Status: Acute (3) Morbid obesity with BMI of 40.0-44.9, adult Current Visit: Yes Status: Acute Plan: Continue with plan of care 1. Continue with IV steroids 2. Monitor labs 3. Repeat chest x-ray if worsens 4. O2 per protocol; will decrease wall oxygen as improves 5. Pulmonary consultation appreciated 6. Continue with albuterol inhaler therapy 7. GI and DVT prophylaxis
[2021-03-08] MEDS: RIVAROXABAN 20 MG TABLET PO SCH (18:17)
[2021-03-08] MEDS: FENOFIBRATE 160 MG TAB PO SCH (18:17)
--- NOTE | 2021-03-09 06:12 | P.PN ---
Subjective Date of Service: 03/09/21 Primary Care Provider: unknown Chief Complaint: Respiratory failure Subjective: Improving (Currently on 10 L) Physical Examination - Vital Signs Temperature: 97.2 F Blood Pressure: 105/66 Pulse: 82 Respirations: 19 Pulse Ox (%): 97 - Studies Medications List Reviewed: Yes Assessment & Plan Discharge Plan: Home Plan to discharge in: Greater than 2 days Physician Review Additional Text: COVID: Positive CT scan: Negative for a pulmonary embolism. Moderate to marked bilateral ground-glass opacities within the lungs probably Covid pneumonia 6.5 centimeter aneurysm ascending thoracic aorta Physical Exam: General: Oriented x3, Mild distress HEENT: Atraumatic, Normocephalic, PERRLA, Mucous membr. moist/pink, Sclerae nonicteric Neck: Supple, 2+ carotid pulse no bruit, JVD not distended, Without JVD or thyroid abnormality Respiratory: Clear. Currently on 10 L Cardiovascular: No edema, Normal pulses, Regular rate/rhythm Gastrointestinal: Normal bowel sounds, No ascites, No tenderness, No masses, No rebound, No guarding Musculoskeletal: No clubbing, No swelling, No contractures, No erythema, No tenderness Integumentary: No rashes, No breakdown, No tenderness/swelling Neurological: Normal gait, Normal speech, Normal strength at 5/5 x4 extr Impression: Dyspnea secondary to bilateral Covid pneumonia with hypoxia Hypertension CT scan showing 6.5 cm thoracic aortic aneurysm Plan: Dyspnea secondary to bilateral Covid pneumonia with hypoxia: Patient continues to slowly improve. Continue IV steroids, supplementation. Patient on baricitinib. Continue incentive spirometer. Continue to wean off oxygen. Continue with pulmonology recommendations. Hypertension: Blood pressure stable off medication at this time. We will monitor this closely. CT scan showing 6.5 cm thoracic aortic aneurysm: Continue to monitor closely. This can be further evaluated as an outpatient by cardiology. DVT prophylaxis: Xarelto CODE STATUS: Full code Advance care planning: Home at discharge Time Spent Managing Pts Care (In Minutes): 55
[2021-03-09] MEDS: FAMOTIDINE 20 MG TAB PO SCH ×2 (08:44→20:15)
[2021-03-09] MEDS: ASPIRIN EC 81 MG TAB PO SCH (08:44)
[2021-03-09] MEDS: VITAMIN D 1000 UNIT TAB PO SCH (08:44)
[2021-03-09] MEDS: BARICITINIB 2 MG TABLET PO SCH (08:44)
[2021-03-09] MEDS: METHYLPREDNISOLONE 40 MG INJ IV SCH ×3 (08:45→20:17)
[2021-03-09] MEDS: ZINC SULFATE 220 MG CAP PO SCH (08:45)
[2021-03-09] MEDS: FUROSEMIDE 40 MG TABLET PO SCH (08:45)
[2021-03-09] MEDS: THIAMINE HCL 100 MG TABLET PO SCH (08:45)
[2021-03-09] MEDS: ASCORBIC ACID 500 MG TABLET PO SCH ×3 (08:45→17:12)
--- NOTE | 2021-03-09 15:56 | P.PN ---
Subjective Date of Service: 03/09/21 Primary Care Provider: unknown Chief Complaint: Respiratory failure Feeling better O2 sat satisfactory no new complaints Review of Systems Unremarkable Physical Examination - Vital Signs Temperature: 98.0 F Blood Pressure: 125/59 Pulse: 112 Respirations: 20 Pulse Ox (%): 92 - Physical Exam General: Alert, In no apparent distress, Oriented x3, Cooperative - Studies Medications List Reviewed: Yes Assessment & Plan - Problems (Diagnosis) (1) COVID-19 Current Visit: No Status: Acute Plan: Resp failure improving/ titrate sat to 90%/NC in treatment/ vitals stable
[2021-03-09] MEDS: RIVAROXABAN 20 MG TABLET PO SCH (17:11)
[2021-03-09] MEDS: FENOFIBRATE 160 MG TAB PO SCH (17:20)
[2021-03-10 04:34] LABS: Absolute Lymphocytes (CBC) 0.2 K/uL (0.7-4.9); Basophils % 0.2 % (0-1.3); Lymphocytes % 1.9 % (15.3-44.8); RBC Red Blood Cell Count 5.01 M/uL (4.33-5.43)
[2021-03-10 04:48] LABS: ALT/SGPT 39 U/L (12-78); AST/SGOT 30 U/L (15-37); Albumin 2.6 g/dL (3.4-5.0); Alkaline Phosphatase 56 U/L (45-117); BUN Blood Urea Nitrogen 43 mg/dL (7-18); Bicarbonate 28 mmol/L (21-32); Bilirubin Total 0.8 mg/dL (0.2-1.0); Ferritin 736.6 ng/mL (26-388); Glucose Level 117 mg/dL (74-106); Magnesium 2.6 mg/dL (1.8-2.4); Potassium 4.9 mmol/L (3.5-5.1); Protein, Total 5.9 g/dL (6.4-8.2); Sodium Level 139 mmol/L (136-145)
[2021-03-10 04:55] LABS: C-Reactive Protein < 2.90 mg/L (<3.00)
--- NOTE | 2021-03-10 06:14 | P.PN ---
Subjective Date of Service: 03/10/21 Primary Care Provider: unknown Chief Complaint: Respiratory failure Subjective: Improving (Patient currently on 10 L per nasal cannula) Physical Examination - Vital Signs Temperature: 97.1 F Blood Pressure: 119/60 Pulse: 69 Respirations: 17 Pulse Ox (%): 98 - Studies Medications List Reviewed: Yes Assessment & Plan Discharge Plan: Home Plan to discharge in: Greater than 2 days Physician Review Additional Text: COVID: Positive CT scan: Negative for a pulmonary embolism. Moderate to marked bilateral ground-glass opacities within the lungs probably Covid pneumonia 6.5 centimeter aneurysm ascending thoracic aorta Physical Exam: General: Oriented x3, Mild distress HEENT: Atraumatic, Normocephalic, PERRLA, Mucous membr. moist/pink, Sclerae nonicteric Neck: Supple, 2+ carotid pulse no bruit, JVD not distended, Without JVD or thyroid abnormality Respiratory: Clear. Currently on 10 L Cardiovascular: No edema, Normal pulses, Regular rate/rhythm Gastrointestinal: Normal bowel sounds, No ascites, No tenderness, No masses, No rebound, No guarding Musculoskeletal: No clubbing, No swelling, No contractures, No erythema, No tenderness Integumentary: No rashes, No breakdown, No tenderness/swelling Neurological: Normal gait, Normal speech, Normal strength at 5/5 x4 extr Impression: Dyspnea secondary to bilateral Covid pneumonia with hypoxia Hypertension CT scan showing 6.5 cm thoracic aortic aneurysm Plan: Dyspnea secondary to bilateral Covid pneumonia with hypoxia: Patient continues to slowly improve. Stable on 10 L per nasal cannula. Respiratory continue to wean off oxygen to maintain sats above 98%. Continue IV steroids, supplementation. Patient on baricitinib. Continue to monitor liver function tests while on medication. Continue incentive spirometer. Continue to wean off oxygen. Continue with pulmonology recommendations. Anticipate continued improvement over the next several days. Hypertension: Blood pressure stable off medication at this time. We will monitor this closely. CT scan showing 6.5 cm thoracic aortic aneurysm: Continue to monitor closely. This can be further evaluated as an outpatient by cardiology. DVT prophylaxis: Xarelto CODE STATUS: Full code Advance care planning: Home at discharge Time Spent Managing Pts Care (In Minutes): 55
[2021-03-10] MEDS: FUROSEMIDE 40 MG TABLET PO SCH (07:54)
[2021-03-10] MEDS: METHYLPREDNISOLONE 40 MG INJ IV SCH ×2 (07:55→08:28)
[2021-03-10] MEDS: FAMOTIDINE 20 MG TAB PO SCH ×2 (07:55→08:28)
[2021-03-10] MEDS: ASPIRIN EC 81 MG TAB PO SCH ×2 (07:55→08:28)
[2021-03-10] MEDS: THIAMINE HCL 100 MG TABLET PO SCH ×2 (07:55→08:28)
[2021-03-10] MEDS: VITAMIN D 1000 UNIT TAB PO SCH ×2 (07:55→08:28)
[2021-03-10] MEDS: ZINC SULFATE 220 MG CAP PO SCH ×2 (07:55→08:28)
[2021-03-10] MEDS: BARICITINIB 2 MG TABLET PO SCH (08:45)
[2021-03-10] MEDS: ASCORBIC ACID 500 MG TABLET PO SCH ×2 (15:13→20:32)
[2021-03-10] MEDS: FENOFIBRATE 160 MG TAB PO SCH (17:33)
[2021-03-10] MEDS: RIVAROXABAN 20 MG TABLET PO SCH (17:33)
[2021-03-11 03:51] LABS: Absolute Lymphocytes (CBC) 0.6 K/uL (0.7-4.9); Basophils % 0.1 % (0-1.3); Hematocrit 43.9 % (39.6-49.0); Lymphocytes % 6.3 % (15.3-44.8); MPV 7.8 fL (7.6-11.3); RBC Red Blood Cell Count 5.11 M/uL (4.33-5.43)
[2021-03-11 04:30] LABS: Blood Morphology Comment NOT SEEN (NOT SEEN); Platelet Estimate ADEQ
[2021-03-11 04:33] LABS: ALT/SGPT 40 U/L (12-78); AST/SGOT 32 U/L (15-37); Albumin 2.6 g/dL (3.4-5.0); Alkaline Phosphatase 60 U/L (45-117); BUN Blood Urea Nitrogen 40 mg/dL (7-18); Bicarbonate 27 mmol/L (21-32); Bilirubin Total 0.7 mg/dL (0.2-1.0); C-Reactive Protein < 2.90 mg/L (<3.00); Ferritin 700.4 ng/mL (26-388); Glucose Level 96 mg/dL (74-106); Potassium 4.8 mmol/L (3.5-5.1); Protein, Total 5.7 g/dL (6.4-8.2); Sodium Level 140 mmol/L (136-145)
[2021-03-11 04:34] LABS: Magnesium 2.4 mg/dL (1.8-2.4)
--- NOTE | 2021-03-11 06:11 | P.PN ---
Subjective Date of Service: 03/11/21 Primary Care Provider: unknown Chief Complaint: Respiratory failure Subjective: Improving, Other (Patient doing well. Patient down to 5 L this morning.) Physical Examination - Vital Signs Temperature: 97.8 F Blood Pressure: 114/66 Pulse: 95 Respirations: 18 Pulse Ox (%): 97 - Studies Medications List Reviewed: Yes Assessment & Plan Discharge Plan: Home Plan to discharge in: 24 Hours Physician Review Additional Text: COVID: Positive CT scan: Negative for a pulmonary embolism. Moderate to marked bilateral ground-glass opacities within the lungs probably Covid pneumonia 6.5 centimeter aneurysm ascending thoracic aorta Follow up CXR 03/11/2021: COMPARISON: Chest Single View dated 03/08/2021; Chest Single View dated 03/04/2021; Chest Single View dated 03/01/2021; Chest Single View dated 02/28/2021 FINDINGS: Lines: None. Lungs: Similar moderate bilateral airspace disease, eccentric to the left. Pleural: No significant pleural effusions or pneumothorax. Cardiac: The heart size is within normal limits. Bones: No acute fractures. IMPRESSION: Moderate bilateral airspace disease is similar to 03/08/2021. Physical Exam: General: Oriented x3, Mild distress HEENT: Atraumatic, Normocephalic, PERRLA, Mucous membr. moist/pink, Sclerae nonicteric Neck: Supple, 2+ carotid pulse no bruit, JVD not distended, Without JVD or thyroid abnormality Respiratory: Clear. Currently on 5 liters Cardiovascular: No edema, Normal pulses, Regular rate/rhythm Gastrointestinal: Normal bowel sounds, No ascites, No tenderness, No masses, No rebound, No guarding Musculoskeletal: No clubbing, No swelling, No contractures, No erythema, No tenderness Integumentary: No rashes, No breakdown, No tenderness/swelling Neurological: Normal gait, Normal speech, Normal strength at 5/5 x4 extr Impression: Dyspnea secondary to bilateral Covid pneumonia with hypoxia Hypertension CT scan showing 6.5 cm thoracic aortic aneurysm Plan: Dyspnea secondary to bilateral Covid pneumonia with hypoxia: Patient continues to significantly improved. Patient currently on 5 L per nasal cannula. Continue to wean off oxygen to maintain sats above 90%. Continue IV steroids and baricitinib. Will change DVT prophylaxis to Lovenox. Continue to encourage ambulation, incentive spirometer. If able to decrease oxygen below 4 L and able to ambulate without significant desaturations will consider discharge as early as today or tomorrow. Await further recommendations from pulmonology. Hypertension: Blood pressure stable off medication at this time. We will monitor this closely. CT scan showing 6.5 cm thoracic aortic aneurysm: Continue to monitor closely. This can be further evaluated as an outpatient by cardiology. DVT prophylaxis: Lovenox CODE STATUS: Full code Advance care planning: Home at discharge Time Spent Managing Pts Care (In Minutes): 55
--- NOTE | 2021-03-11 07:21 | RAD REPORT ---
EXAM DESCRIPTION: RAD - Chest Single View - 03/11/2021 4:45 am CLINICAL HISTORY: follow up COVId COMPARISON: Chest Single View dated 03/08/2021; Chest Single View dated 03/04/2021; Chest Single View d ated 03/01/2021; Chest Single View dated 02/28/2021 FINDINGS: Lines: None. Lungs: Similar moderate bilateral airspace disease, eccentric to the left. Pleural: No significant pleural effusions or pneumothorax. Cardiac: The heart size is within normal limits. Bones: No acute fractures. Other: IMPRESSION: Moderate bilateral airspace disease is similar to 03/08/2021.
[2021-03-11] MEDS: METHYLPREDNISOLONE 40 MG INJ IV SCH (08:49)
[2021-03-11] MEDS: FUROSEMIDE 40 MG TABLET PO SCH (08:50)
[2021-03-11] MEDS: ASCORBIC ACID 500 MG TABLET PO SCH ×3 (08:51→20:20)
[2021-03-11] MEDS: FAMOTIDINE 20 MG TAB PO SCH ×2 (08:51→20:20)
[2021-03-11] MEDS: ASPIRIN EC 81 MG TAB PO SCH (08:52)
[2021-03-11] MEDS: BARICITINIB 2 MG TABLET PO SCH (10:15)
[2021-03-11] MEDS: ENOXAPARIN 40 MG/0.4 ML SQ SCH (17:38)
[2021-03-11] MEDS: FENOFIBRATE 160 MG TAB PO SCH (17:50)
[2021-03-12 03:48] LABS: Absolute Lymphocytes (CBC) 0.5 K/uL (0.7-4.9); Basophils % 0.2 % (0-1.3); Hematocrit 43.7 % (39.6-49.0); Lymphocytes % 6.6 % (15.3-44.8); MPV 8.4 fL (7.6-11.3); RBC Red Blood Cell Count 5.02 M/uL (4.33-5.43)
[2021-03-12 04:11] LABS: Albumin 2.6 g/dL (3.4-5.0); Bilirubin Total 0.7 mg/dL (0.2-1.0); C-Reactive Protein 3.58 mg/L (<3.00); Ferritin 700.4 ng/mL (26-388); Protein, Total 5.6 g/dL (6.4-8.2)
[2021-03-12 04:37] LABS: Magnesium 2.5 mg/dL (1.8-2.4)
--- NOTE | 2021-03-12 06:08 | P.PN ---
Subjective Date of Service: 03/12/21 Primary Care Provider: unknown Chief Complaint: Respiratory failure Subjective: Improving Physical Examination - Vital Signs Temperature: 98.2 F Blood Pressure: 129/74 Pulse: 99 Respirations: 20 Pulse Ox (%): 95 - Studies Medications List Reviewed: Yes Assessment & Plan Discharge Plan: Home Plan to discharge in: Greater than 2 days Physician Review Additional Text: COVID: Positive CT scan: Negative for a pulmonary embolism. Moderate to marked bilateral ground-glass opacities within the lungs probably Covid pneumonia 6.5 centimeter aneurysm ascending thoracic aorta Follow up CXR 03/11/2021: COMPARISON: Chest Single View dated 03/08/2021; Chest Single View dated 03/04/2021; Chest Single View dated 03/01/2021; Chest Single View dated 02/28/2021 FINDINGS: Lines: None. Lungs: Similar moderate bilateral airspace disease, eccentric to the left. Pleural: No significant pleural effusions or pneumothorax. Cardiac: The heart size is within normal limits. Bones: No acute fractures. IMPRESSION: Moderate bilateral airspace disease is similar to 03/08/2021. Physical Exam: General: Oriented x3, Mild distress HEENT: Atraumatic, Normocephalic, PERRLA, Mucous membr. moist/pink, Sclerae nonicteric Neck: Supple, 2+ carotid pulse no bruit, JVD not distended, Without JVD or thyroid abnormality Respiratory: Clear. Currently on 8 L per nasal cannula Cardiovascular: No edema, Normal pulses, Regular rate/rhythm Gastrointestinal: Normal bowel sounds, No ascites, No tenderness, No masses, No rebound, No guarding Musculoskeletal: No clubbing, No swelling, No contractures, No erythema, No tenderness Integumentary: No rashes, No breakdown, No tenderness/swelling Neurological: Normal gait, Normal speech, Normal strength at 5/5 x4 extr Impression: Dyspnea secondary to bilateral Covid pneumonia with hypoxia Hypertension CT scan showing 6.5 cm thoracic aortic aneurysm Plan: Dyspnea secondary to bilateral Covid pneumonia with hypoxia: Slow improvement noted. Currently on 8 L per nasal cannula. CRP and ferritin improved. Continue to wean off oxygen to maintain sats above 90%. Continue IV steroids and baricitinib. Continue to encourage ambulation, incentive spirometer. We will get physical therapy to ambulate. Continue with pulmonology recommendations. Home once oxygen requirement less than 4 L. Progress is slow. Hypertension: Blood pressure stable off medication at this time. We will monitor this closely. CT scan showing 6.5 cm thoracic aortic aneurysm: Continue to monitor closely. This can be further evaluated as an outpatient by cardiology. DVT prophylaxis: Lovenox CODE STATUS: Full code Advance care planning: Home at discharge Time Spent Managing Pts Care (In Minutes): 55
[2021-03-12] MEDS: ASCORBIC ACID 500 MG TABLET PO SCH ×3 (08:15→20:59)
[2021-03-12] MEDS: VITAMIN D 1000 UNIT TAB PO SCH (08:15)
[2021-03-12] MEDS: ZINC SULFATE 220 MG CAP PO SCH (08:15)
[2021-03-12] MEDS: FAMOTIDINE 20 MG TAB PO SCH (08:15)
[2021-03-12] MEDS: FUROSEMIDE 40 MG TABLET PO SCH (08:15)
[2021-03-12] MEDS: ASPIRIN EC 81 MG TAB PO SCH (08:15)
[2021-03-12] MEDS: THIAMINE HCL 100 MG TABLET PO SCH (08:15)
[2021-03-12] MEDS: BARICITINIB 2 MG TABLET PO SCH (08:23)
[2021-03-12] MEDS: METHYLPREDNISOLONE 40 MG INJ IV SCH ×2 (08:23→21:00)
[2021-03-12] MEDS: ENOXAPARIN 40 MG/0.4 ML SQ SCH (18:04)
[2021-03-12] MEDS: FENOFIBRATE 160 MG TAB PO SCH (18:04)
--- NOTE | 2021-03-13 06:16 | P.PN ---
Subjective Date of Service: 03/13/21 Primary Care Provider: unknown Chief Complaint: Respiratory failure Subjective: Improving, Doing well Physical Examination - Vital Signs Temperature: 97.1 F Blood Pressure: 125/65 Pulse: 84 Respirations: 19 Pulse Ox (%): 96 - Studies Medications List Reviewed: Yes Assessment & Plan Discharge Plan: Home Plan to discharge in: Greater than 2 days Physician Review Additional Text: COVID: Positive CT scan: Negative for a pulmonary embolism. Moderate to marked bilateral ground-glass opacities within the lungs probably Covid pneumonia 6.5 centimeter aneurysm ascending thoracic aorta Follow up CXR 03/11/2021: COMPARISON: Chest Single View dated 03/08/2021; Chest Single View dated 03/04/2021; Chest Single View dated 03/01/2021; Chest Single View dated 02/28/2021 FINDINGS: Lines: None. Lungs: Similar moderate bilateral airspace disease, eccentric to the left. Pleural: No significant pleural effusions or pneumothorax. Cardiac: The heart size is within normal limits. Bones: No acute fractures. IMPRESSION: Moderate bilateral airspace disease is similar to 03/08/2021. Physical Exam: General: Oriented x3, Mild distress HEENT: Atraumatic, Normocephalic, PERRLA, Mucous membr. moist/pink, Sclerae nonicteric Neck: Supple, 2+ carotid pulse no bruit, JVD not distended, Without JVD or thyroid abnormality Respiratory: Clear. Currently on 8 L per nasal cannula Cardiovascular: No edema, Normal pulses, Regular rate/rhythm Gastrointestinal: Normal bowel sounds, No ascites, No tenderness, No masses, No rebound, No guarding Musculoskeletal: No clubbing, No swelling, No contractures, No erythema, No tenderness Integumentary: No rashes, No breakdown, No tenderness/swelling Neurological: Normal gait, Normal speech, Normal strength at 5/5 x4 extr Impression: Dyspnea secondary to bilateral Covid pneumonia with hypoxia Hypertension CT scan showing 6.5 cm thoracic aortic aneurysm Plan: Dyspnea secondary to bilateral Covid pneumonia with hypoxia: Patient continues to slowly improve. Currently on 8 L per nasal cannula. CRP and ferritin improved. Continue to wean off oxygen to maintain sats above 90%. Continue IV steroids and baricitinib. Continue to encourage ambulation, incentive spirometer. Continue with pulmonology recommendations. Home once oxygen requirement less than 4 L. Progress is slow but overall improved. Physical therapy to continue to help with ambulation Hypertension: Blood pressure stable off medication at this time. We will monitor this closely. CT scan showing 6.5 cm thoracic aortic aneurysm: Continue to monitor closely. This can be further evaluated as an outpatient by cardiology. DVT prophylaxis: Lovenox CODE STATUS: Full code Advance care planning: Home at discharge Time Spent Managing Pts Care (In Minutes): 55
[2021-03-13] MEDS: VITAMIN D 1000 UNIT TAB PO SCH (07:57)
[2021-03-13] MEDS: ASPIRIN EC 81 MG TAB PO SCH (07:57)
[2021-03-13] MEDS: FUROSEMIDE 40 MG TABLET PO SCH (07:57)
[2021-03-13] MEDS: ASCORBIC ACID 500 MG TABLET PO SCH ×3 (07:57→20:31)
[2021-03-13] MEDS: ZINC SULFATE 220 MG CAP PO SCH (07:57)
[2021-03-13] MEDS: THIAMINE HCL 100 MG TABLET PO SCH (07:57)
[2021-03-13] MEDS: FAMOTIDINE 20 MG TAB PO SCH ×2 (07:58→20:31)
[2021-03-13] MEDS: METHYLPREDNISOLONE 40 MG INJ IV SCH ×2 (07:58→20:31)
[2021-03-13] MEDS: BARICITINIB 2 MG TABLET PO SCH (07:58)
--- NOTE | 2021-03-13 11:59 | P.PN ---
Subjective Date of Service: 03/13/21 Primary Care Provider: unknown Chief Complaint: Respiratory failure Patient is doing much better alert responsive is down down to 7 L Review of Systems Respiratory: Shortness of Breath Physical Examination - Vital Signs Temperature: 97.1 F Blood Pressure: 125/65 Pulse: 84 Respirations: 19 Pulse Ox (%): 96 - Physical Exam General: Alert, Oriented x3, Cooperative - Studies Medications List Reviewed: Yes Assessment & Plan - Problems (Diagnosis) (1) COVID-19 Current Visit: No Status: Acute Plan: Patient is doing well he is alert oriented responsive cooperative plan to titrate his sat down to 90% currently on 7 L of nasal cannula oxygen sat of 97% plan for discharge today
[2021-03-13] MEDS: FENOFIBRATE 160 MG TAB PO SCH (16:04)
[2021-03-13] MEDS: ENOXAPARIN 40 MG/0.4 ML SQ SCH (16:04)
[2021-03-14 04:35] LABS: Absolute Lymphocytes (CBC) 0.7 K/uL (0.7-4.9); Basophils % 0.2 % (0-1.3); Hematocrit 40.7 % (39.6-49.0); Lymphocytes % 9.9 % (15.3-44.8); MPV 7.9 fL (7.6-11.3); RBC Red Blood Cell Count 4.71 M/uL (4.33-5.43)
[2021-03-14 04:54] LABS: ALT/SGPT 39 U/L (12-78); AST/SGOT 21 U/L (15-37); Albumin 2.7 g/dL (3.4-5.0); Alkaline Phosphatase 55 U/L (45-117); BUN Blood Urea Nitrogen 38 mg/dL (7-18); Bicarbonate 31 mmol/L (21-32); Bilirubin Total 0.7 mg/dL (0.2-1.0); Ferritin 682.3 ng/mL (26-388); Glucose Level 93 mg/dL (74-106); Magnesium 2.3 mg/dL (1.8-2.4); Potassium 4.3 mmol/L (3.5-5.1); Protein, Total 5.5 g/dL (6.4-8.2); Sodium Level 140 mmol/L (136-145)
[2021-03-14 04:55] LABS: C-Reactive Protein < 2.90 mg/L (<3.00)
--- NOTE | 2021-03-14 08:39 | RAD REPORT ---
EXAM DESCRIPTION: RAD - Chest Single View - 03/14/2021 6:57 am CLINICAL HISTORY: Follow-up Covidpneumonia COMPARISON: March 11 TECHNIQUE: AP portable chest image was obtained 03/14/2021 6:57 am . FINDINGS: Lung volumes remain low. Left greater than right airspace opacification is present with im provement seen in the left lung field. Significant infiltrates remain. Heart size is prominent but stable. Central vasculature is mildly prominent. No measurable pleural e ffusion and no pneumothorax. No acute bony abnormality seen. No acute aortic findings suspected. IMPRESSION: Partial clearing of the left lung field pneumonia findings since March 11. Significa nt pneumonia remains.
[2021-03-14 08:46] VITALS: TEMP 98
[2021-03-14] MEDS: BARICITINIB 2 MG TABLET PO SCH (08:53)
[2021-03-14] MEDS: ZINC SULFATE 220 MG CAP PO SCH (08:54)
[2021-03-14] MEDS: METHYLPREDNISOLONE 40 MG INJ IV SCH (08:54)
[2021-03-14] MEDS: FAMOTIDINE 20 MG TAB PO SCH (08:54)
[2021-03-14] MEDS: VITAMIN D 1000 UNIT TAB PO SCH (08:54)
[2021-03-14] MEDS: ASCORBIC ACID 500 MG TABLET PO SCH ×2 (08:54→13:50)
[2021-03-14] MEDS: THIAMINE HCL 100 MG TABLET PO SCH (08:54)
[2021-03-14] MEDS: FUROSEMIDE 40 MG TABLET PO SCH (08:59)
[2021-03-14 09:19] VITALS: O2SAT 93
[2021-03-14 11:32] VITALS: BP 124/66
--- NOTE | 2021-03-14 16:27 | DS ---
Date of Discharge: 03/14/2021 Discharge Diagnoses: 1.Progressive shortness of breath secondary to bilateral COVID pneumonia with hypoxemia. 2.Hypertension. 3.Aortic aneurysm. Consult: Pulmonary, Thony Grace MD. Procedure: CT of the chest done on the day of admission followed by multiple chest x-rays. CT of th e chest showed negative for PE. Moderate to marked bilateral ground-glass opacities with lungs proba diana COVID pneumonia, 6.5 cm aneurysm extending thoracic aorta. History Of Present Illness: Please refer to admission note. Hospital Course: Initially, the patient presented to the emergency room with progressive shortness o f breath without any fever, chills, night sweats. CAT scan done showed bilateral COVID pneumonia wit h large aortic aneurysm. The patient was on oxygen, IV steroid. He was initially on 15 L oxygen. H e was started on baricitinib. His CRP and ferritin were monitored. Currently, he is down to 3 L. H is labs today are within normal. C-reactive protein normal and ferritin down to 682. He will be dis charged home on prednisone 20 mg twice a day for 7 days followed by 20 mg daily. Vitamin C, zinc and vitamin as well as aspirin. He will need to follow up with Dr. Grace and primary care physician in 1 week. We will keep oxygen above 93, advised to keep prone position and do spirometry, he will f ollow up with Cardiology about his aortic aneurysm which is large, need close monitoring every 6 franca hs. Clear instruction was given to the patient about that. He understands the risk of rupture, blee ding, and . Discharge Diet: Cardiac. Discharge Activity: As tolerated. Discharge Followup: As above with PCP, Pulmonary, as well as Cardiology. Discharge Physical Examination: Vital Signs: Blood pressure is 134/66, respiratory rate 20, pulse 9 6, temperature 98. The patient is alert and oriented x3. Does not look in any distress. HEENT: Atraumatic, normocephalic. PERRLA. Oral mucosa is moist. Neck: Supple. No JVD. No carotid bruit. Chest: Clear to auscultation. Good air entry. Heart: Regular rate and rhythm. S1, S2 normal. No gallop or murmur. Abdomen: Soft, nontender. No masses. No hepatosplenomegaly. Positive bowel sounds. Extremities: No clubbing, no cyanosis, no edema. No calf tenderness. Neurologic: Grossly intact. Discharge Medications: 20 mg twice a day for 1 month, vitamin C 500 mg t.i.d., aspirin 81 mg daily, vitamin D 2000 unit daily, prednisone 1 mg twice a day for 7 days followed by 20 mg daily, thiamine 100 mg daily, zinc sulfate 220 mg daily, candesartan 32 mg daily. NINFA/FLAVIA Voice ID: [id number] Report ID: [id number]
== END 2021-03-14 14:32 | disposition home or self-care (01) | DRG 177 ==
LOC: ER 11:30 → ERHOLD 17:31 → 4TH 03-01 18:14
PROVIDERS: ADMIT Family Medicine; ATTEND Family Medicine
DX: U07.1 COVID-19 (principal); J12.82 Pneumonia due to coronavirus disease 2019; J96.91 Respiratory failure, unspecified with hypoxia; Z68.41 Body mass index [BMI] 40.0-44.9, adult; I10 Essential (primary) hypertension; I71.2 Thoracic aortic aneurysm, without rupture; E66.01 Morbid (severe) obesity due to excess calories; E87.5 Hyperkalemia
CPT/HCPCS: 36415; 71045; 71275; 80048; 80053; 80061; 80076; 82728; 82947; 83690; 83735; 83880; 84484; 85025; 85379; 85610; 86140; 87040; 94010; 94760; 96374; 96375; 99284; J1650; J1940; J2920; J2930; J7030; J7040; J7050; Q9967

== ENCOUNTER 2021-04-17 14:49 | Emergency (ER) | payer OTHER ==
--- NOTE | 2021-04-17 16:30 | RAD REPORT ---
EXAM DESCRIPTION: US - Extremity Venous Uni Ltd - 04/17/2021 4:25 pm CLINICAL HISTORY: SWELLING Leg swelling and edema. COMPARISON: No comparisons FINDINGS: Left lower extremity venous system was interrogated with Doppler technique. Left femoral v ein to popliteal vein is noncompressible compatible with acute DVT. IMPRESSION: Positive for left lower extremity DVT.
[2021-04-17 17:10] LABS: Absolute Lymphocytes (CBC) 0.6 K/uL (0.7-4.9); Basophils % 0.5 % (0-1.3); Hematocrit 38.7 % (39.6-49.0); Lymphocytes % 7.5 % (15.3-44.8); MPV 7.1 fL (7.6-11.3); Protime INR 0.98
[2021-04-17 17:34] LABS: ALT/SGPT 44 U/L (12-78); AST/SGOT 26 U/L (15-37); Albumin 3.1 g/dL (3.4-5.0); Alkaline Phosphatase 80 U/L (45-117); BUN Blood Urea Nitrogen 16 mg/dL (7-18); Bicarbonate 29 mmol/L (21-32); Bilirubin Direct 0.2 mg/dL (0-0.2); Bilirubin Total 0.7 mg/dL (0.2-1.0); Glucose Level 92 mg/dL (74-106); Magnesium 2.2 mg/dL (1.8-2.4); NT PRO-BNP 207 pg/mL (<125); Potassium 4.2 mmol/L (3.5-5.1); Protein, Total 6.2 g/dL (6.4-8.2); Sodium Level 143 mmol/L (136-145); Troponin (Emerg Dept Use Only) < 0.02 ng/mL (0.0-0.045)
--- NOTE | 2021-04-17 17:59 | RAD REPORT ---
EXAM DESCRIPTION: CT - Chest For Pe Angio - 04/17/2021 5:35 pm CLINICAL HISTORY: Chest pain. DYSPNEA COMPARISON: <Comparisons> TECHNIQUE: CT angiogram of the pulmonary arteries was performed with MIP. All CT scans are performed using dose optimization technique as appropriate and may include automated exposure control or mA/KV adjustment according to patient size. FINDINGS: No evidence of pulmonary thromboembolism. No acute aortic finding demonstrated. Thoracic aortic aneurysm is stable from recent comparative stud y. Hapo-hl-[id number] bilateral ground-glass lung opacities are present compatible with COVID-19 infection . No significant pericardial or pleural fluid. No concerning bony finding. IMPRESSION: No evidence of pulmonary thromboembolism. Nhik-rw-[id number] bilateral ground-glass lung opacities are present compatible with COVID-19 infection .
--- NOTE | 2021-04-17 18:07 | ER ---
Nurse's Notes [facility] Name: Emiliano Verdugo Age: 66 yrs Sex: Male : 1955 Arrival Date: 04/17/2021 Time: 14:55 Bed 19 Private MD: Yang Teran B Diagnosis: Acute embolism and thrombosis of unspecified deep veins of left lower extremity Presentation: 04/17 15:11 Chief complaint: Patient states: he noticed left leg swelling today. Had covid on aa5 02/15/[address] is concerned he could have a clot so he was sent in for an US. Coronavirus screen: Vaccine status: Patient reports being unvaccinated. Patient reports having had a previously documented Covid positive illness. February 15, 2021. Ebola Screen: Patient negative for fever greater than or equal to 101.5 degrees Fahrenheit, and additional compatible Ebola Virus Disease symptoms Patient denies exposure to infectious person. Patient denies travel to an Ebola-affected area in the 21 days before illness onset. No symptoms or risks identified at this time. Initial Sepsis Screen: Does the patient meet any 2 criteria? No. Patient's initial sepsis screen is negative. Does the patient have a suspected source of infection? No. Patient's initial sepsis screen is negative. Risk Assessment: Do you want to hurt yourself or someone else? Patient reports no desire to harm self or others. Onset of symptoms was April 17, 2021. 15:11 Method Of Arrival: Ambulatory aa5 15:11 Acuity: ARABELLA 3 aa5 Historical: - Allergies: 15:13 No Known Allergies; aa5 - PMHx: 15:13 Aortic Aneurysm; Hypertensive disorder; aa5 - PSHx: 15:13 Gurinder hip replacement; knee sx; Neck Sx (herniated disc); aa5 - Immunization history:: Client reports having NOT received the Covid vaccine. Flu vaccine is not up to date. - Social history:: Smoking status: Patient denies any tobacco usage or history of. Screenin:32 Abuse screen: Denies threats or abuse. Denies injuries from another. Nutritional tc5 screening: No deficits noted. Tuberculosis screening: No symptoms or risk factors identified. Fall Risk None identified. Assessment: 18:31 General: Appears uncomfortable, Behavior is calm, cooperative, agitated. Pain: tc5 Complains of pain in lateral aspect of left calf and left lateral ankle. Vital Signs: 15:11 BP 137 / 69; Pulse 108; Resp 22; Temp 97.7; Pulse Ox 96% ; Weight 129.73 kg; Height 6 aa5 ft. (182.88 cm); Pain 0/10; 18:31 BP 159 / 66; Pulse 94; Resp 20; Pulse Ox 99% ; tc5 15:11 Body Mass Index 38.79 (129.73 kg, 182.88 cm) aa5 ED Course: 14:55 Patient arrived in ED. as 14:55 Yang Teran MD is Private Physician. as 15:11 Arm band placed on. aa5 15:13 Triage completed. aa5 15:14 Belle Sarmiento FNP-C is [facility]. kb 15:14 Nabor Alejo MD is Attending Physician. kb 16:25 US Extremity Venous Unilateral Ltd In Process Unspecified. EDMS 16:41 Jeanette Hill RN is Primary Nurse. tc5 17:10 Patient has correct armband on for positive identification. Placed in gown. Bed in low mh5 position. Call light in reach. Side rails up X2. Adult w/ patient. Warm blanket given. engine monitor on. Pulse ox on. NIBP on. 17:10 Initial lab(s) drawn, by ED staff, sent to lab. EKG done, by ED staff, reviewed by anthony MONTALVO. 17:33 CT Chest For PE Angio In Process Unspecified. EDMS 18:33 Inserted saline lock: 20 gauge in right antecubital area, using aseptic technique. tc5 Blood collected. 18:33 IV discontinued, intact, bleeding controlled, No redness/swelling at site. Pressure tc5 dressing applied. 18:33 No provider procedures requiring assistance completed. tc5 Administered Medications: No medications were administered Outcome: 18:07 Discharge ordered by . kb 18:33 Discharged to home ambulatory. tc5 18:33 Condition: stable 18:33 Discharge instructions given to patient. 18:34 Patient left the ED. tc5 Signatures: Dispatcher [employer] EDMS Belle Sarmiento FNP-C FNP-Nadia Linares Audri, RN RN Ria Concepcion [facility] Cassaboom, Jeanette, RN RN tc5 Corrections: (The following items were deleted from the chart) 15:15 15:15 Arm band placed on aa5 aa5
--- NOTE | 2021-04-17 18:08 | EDPHYS ---
Physician Documentation [facility] Name: Emiliano Verdugo Age: 66 yrs Sex: Male : 1955 Arrival Date: 04/17/2021 Time: 14:55 Bed 19 Private MD: Yang Teran B ED Physician Nabor Alejo HPI: 04/17 16:23 This 66 yrs old Male presents to ER via Ambulatory with complaints of Leg kb Swelling. 16:23 The patient presents with swelling. The complaints affect the left morgan. Context: The kb problem was sustained at home, resulted from an unknown cause, the patient can fully bear weight, the patient is able to ambulate, Problem is a result from a previous injury: No. Onset: The symptoms/episode began/occurred today. Modifying factors: The symptoms are alleviated by nothing. the symptoms are aggravated by nothing. Associated signs and symptoms: Pertinent positives: swelling, Pertinent negatives calf tenderness, fever, nausea, numbness, rash, tingling, vomiting, warmth, weakness. Treatment prior to arrival includes: no previous treatment. Severity of symptoms: At their worst the symptoms were moderate, in the emergency department the symptoms are unchanged. The patient has not experienced similar symptoms in the past. The patient has not recently seen a physician. Pt reports he noticed swelling to left leg today. His dr wanted him to come in to get checked for a DVT because he was recently hospitalized for 3 weeks for COVID. States he still has dyspnea on exertion, but does not have to use home O2 anymore. . Historical: - Allergies: 15:13 No Known Allergies; aa5 - PMHx: 15:13 Aortic Aneurysm; Hypertensive disorder; aa5 - PSHx: 15:13 Gurinder hip replacement; knee sx; Neck Sx (herniated disc); aa5 - Immunization history:: Client reports having NOT received the Covid vaccine. Flu vaccine is not up to date. - Social history:: Smoking status: Patient denies any tobacco usage or history of. ROS: 16:21 Constitutional: Negative for fever, chills, and weight loss. kb 16:21 MS/extremity: Positive for swelling, of the left leg. 16:21 All other systems are negative. 16:23 Respiratory: Positive for dyspnea on exertion. kb Exam: 16:21 Constitutional: This is a well developed, well nourished patient who is awake, alert, kb and in no acute distress. Head/Face: Normocephalic, atraumatic. ENT: Moist Mucous membranes Skin: Warm, dry with normal turgor. Normal color. Neuro: Awake and alert, GCS 15, oriented to person, place, time, and situation. Moves all extremities. Normal gait. Psych: Awake, alert, with orientation to person, place and time. Behavior, mood, and affect are within normal limits. 16:21 Respiratory: mild respiratory distress is noted, Respirations: labored breathing, that is mild, that is moderate, Breath sounds: are clear throughout. Vital Signs: 15:11 BP 137 / 69; Pulse 108; Resp 22; Temp 97.7; Pulse Ox 96% ; Weight 129.73 kg; Height 6 aa5 ft. (182.88 cm); Pain 0/10; 18:31 BP 159 / 66; Pulse 94; Resp 20; Pulse Ox 99% ; tc5 15:11 Body Mass Index 38.79 (129.73 kg, 182.88 cm) aa5 MDM: 15:14 Patient medically screened. kb 16:21 Data reviewed: vital signs, nurses notes. Data interpreted: Pulse oximetry: on room air kb is 96 %. Interpretation: normal. 18:05 Counseling: I had a detailed discussion with the patient and/or guardian regarding: the kb historical points, exam findings, and any diagnostic results supporting the discharge/admit diagnosis, lab results, radiology results, the need for outpatient follow up, a family practitioner, to return to the emergency department if symptoms worsen or persist or if there are any questions or concerns that arise at home. ED course: Dr Grace and Catrachita called and both recommended xarelto 15mg PO BID for 21 days. 04/17 16: Order name: Basic Metabolic Panel; Complete Time: 17:40 kb 04/17 16:23 Order name: CBC with Diff; Complete Time: 17:14 kb 04/17 16:23 Order name: LFT's; Complete Time: 17:40 kb 04/17 16:23 Order name: Magnesium; Complete Time: 17:40 kb 04/17 16:23 Order name: NT PRO-BNP; Complete Time: 17:40 kb 04/17 16:23 Order name: PT-INR; Complete Time: 17:14 kb 04/17 15:11 Order name: US Extremity Venous Unilateral Ltd; Complete Time: 16:32 aa5 04/17 16:23 Order name: Troponin (emerg Dept Use Only); Complete Time: 17:40 kb 04/17 16:23 Order name: EKG; Complete Time: 16:24 kb 04/17 16:23 Order name: Cardiac monitoring; Complete Time: 16:59 kb 04/17 16:23 Order name: EKG - Nurse/Tech; Complete Time: 17:10 kb 04/17 16:23 Order name: IV Saline Lock; Complete Time: 16:59 kb 04/17 16:23 Order name: Labs collected and sent; Complete Time: 16:59 kb 04/17 16:23 Order name: CT Chest For PE Angio; Complete Time: 18:05 kb 04/17 16:23 Order name: O2 Per Protocol; Complete Time: 16:59 kb 04/17 16:23 Order name: O2 Sat Monitoring; Complete Time: 16:59 kb Administered Medications: No medications were administered Disposition Summary: 04/17/21 18:07 Discharge Ordered Location: Home kb Condition: Stable kb Diagnosis - Acute embolism and thrombosis of unspecified deep veins of left lower extremity kb Followup: kb - With: Emergency Department - When: As needed - Reason: Worsening of condition Followup: kb - With: Private Physician - When: 2 - 3 days - Reason: Recheck today's complaints, Continuance of care, Re-evaluation by your physician Discharge Instructions: - Discharge Summary Sheet kb - Deep Vein Thrombosis kb Forms: - Medication Reconciliation Form kb - Thank You Letter kb - Antibiotic Education kb - Prescription Opioid Use kb Prescriptions: - Xarelto 15 mg Oral Tablet - take 1 tablet by ORAL route 2 times per day for 21 days; 42 tablet; Refills: 0, kb Product Selection Permitted Addendum: 04/20/2021 10:26 Co-signature as Attending Physician, Nabor Alejo MD I agree with the assessment and c houser plan of care. Signatures: Dispatcher [employer] Belle Little, ENDOSCOPY TECHNICAN-C ENDOSCOPY TECHNICAN-Nabor Reddy MD MD cha Calderon, Audri, RN RN aa5
[2021-04-17 18:41] VITALS: TEMP 97.7
[2021-04-17 18:43] VITALS: BP 159/66; O2SAT 99
== END 2021-04-17 18:34 | disposition home or self-care (01) ==
LOC: ER 14:49
DX: I82.4Z2 Acute embolism and thrombosis of unspecified deep veins of left distal lower extremity (principal); I10 Essential (primary) hypertension; Z86.16 Personal history of COVID-19
CPT/HCPCS: 93005; 85025; 80048; 36415; 83735; 85610; 80076; 84484; 83880; 71275; 93971; 99284; Q9967

== ENCOUNTER 2023-02-27 23:11 | Emergency (ER) | payer OTHER ==
[2023-02-28 01:53] LABS: Absolute Lymphocytes (CBC) 0.8 K/uL (0.7-4.9); Hematocrit 43.3 % (39.6-49.0); Lymphocytes % 10.1 % (15.3-44.8); MCV 83.7 fL (80-100); MPV 7.7 fL (7.6-11.3); Platelets 219 thou/uL (152-406); RBC Red Blood Cell Count 5.17 M/uL (4.33-5.43)
[2023-02-28 01:55] LABS: Protime INR 2.29
[2023-02-28 02:18] LABS: Magnesium 2.4 mg/dL (1.6-2.4); Potassium 4.5 mEq/L (3.5-5.1); Troponin High Sensitivity 7.6 pg/mL (<58.9)
[2023-02-28 02:25] LABS: Specific Gravity 1.021 (1.005-1.030); Urine Bacteria None Seen /HPF (<20); Urine Bilirubin NEGATIVE (Negative); Urine Blood 1+ (Negative); Urine Clarity Clear (Clear); Urine Color Light-Yellow (Yellow); Urine Glucose NEGATIVE (Negative); Urine Mucus Slight /HPF (None Seen); Urine Protein TRACE (Negative); Urine RBC 21-50 /HPF (None Seen); Urine Urobilinogen Normal (Normal); Urine pH 6.5 (5.0-7.0)
--- NOTE | 2023-02-28 02:43 | ER ---
Nurse's Notes [facility] Name: Emiliano Verdugo Age: 67 yrs Sex: Male : 1955 Arrival Date: 02/27/2023 Time: 23:11 Bed 20 Private MD: Diagnosis: Syncope Near;Obesity, unspecified Presentation: 02/27 23:45 Chief complaint: Spouse and/or significant other states: Had a seizure about 10:20, He vc1 was moaning arms straight and hands shaking. He broke out in a sweat. Coronavirus screen: Client denies travel out of the [place] in the last 14 days. At this time, the client does not indicate any symptoms associated with coronavirus-19. Ebola Screen: Patient negative for fever greater than or equal to 101.5 degrees Fahrenheit, and additional compatible Ebola Virus Disease symptoms Patient denies exposure to infectious person. Patient denies travel to an Ebola-affected area in the 21 days before illness onset. No symptoms or risks identified at this time. Initial Sepsis Screen: Does the patient meet any 2 criteria? No. Patient's initial sepsis screen is negative. Does the patient have a suspected source of infection? No. Patient's initial sepsis screen is negative. Risk Assessment: Do you want to hurt yourself or someone else? Patient reports no desire to harm self or others. Note no history of seizures, lasted maybe a minute or two. Onset of symptoms was February 27, 2023 at 22:20. 23:45 Method Of Arrival: Ambulatory vc1 23:45 Acuity: ARABELLA 3 vc1 Triage Assessment: 23:48 General: Appears in no apparent distress. distressed, Behavior is calm, cooperative, vc1 appropriate for age. Pain: Denies pain. EENT: No deficits noted. No signs and/or symptoms were reported regarding the EENT system. Neuro: Level of Consciousness is awake, alert, obeys commands, Oriented to person, place, time, situation, Appropriate for age. Cardiovascular: No deficits noted. Respiratory: Airway is patent Respiratory effort is even, unlabored, Respiratory pattern is regular, symmetrical. GI: No deficits noted. No signs and/or symptoms were reported involving the gastrointestinal system. : No deficits noted. No signs and/or symptoms were reported regarding the genitourinary system. Derm: No deficits noted. No signs and/or symptoms reported regarding the dermatologic system. Musculoskeletal: No deficits noted. No signs and/or symptoms reported regarding the musculoskeletal system. Historical: - Allergies: 23:48 No Known Allergies; vc1 - PMHx: 23:48 aortic aneurysm; Hypertensive disorder; vc1 - PSHx: 23:48 Gurinder hip replacement; knee sx; Neck Sx (herniated disc); Open heart surgery 10/2021; vc1 - Immunization history:: Client reports having NOT received the Covid vaccine. - Social history:: Smoking status: . Screenin/04 06:33 [facility] ED Fall Risk Assessment (Adult) History of falling in the last 3 months, sg5 including since admission No falls in past 3 months (0 pts). Abuse screen: Denies threats or abuse. Nutritional screening: No deficits noted. Tuberculosis screening: No symptoms or risk factors identified. Assessment: 01:45 General: Appears in no apparent distress. comfortable, Behavior is calm, cooperative, sg5 appropriate for age. Pain: Denies pain. Neuro: Level of Consciousness is awake, alert, obeys commands, Oriented to person, place, time, situation, Appropriate for age. Neuro: Reports stiffness and shaking, then becoming hot and diaphoretic at home. Resolved at this time.. Cardiovascular: Capillary refill < 3 seconds Patient's skin is warm and dry. Respiratory: Airway is patent Trachea midline Respiratory effort is even, unlabored, Respiratory pattern is regular, symmetrical. GI: No signs and/or symptoms were reported involving the gastrointestinal system. Abdomen is round non-distended. : No signs and/or symptoms were reported regarding the genitourinary system. EENT: No signs and/or symptoms were reported regarding the EENT system. Derm: No signs and/or symptoms reported regarding the dermatologic system. Musculoskeletal: No signs and/or symptoms reported regarding the musculoskeletal system. 05:54 Reassessment: Report ER to ER given to BELKYS Andrews. sg5 Vital Signs: 02/27 23:45 Weight 147.87 kg; Height 6 ft. 0 in. ; Pain 0/10; vc1 23:49 Pulse 73; Resp 18; Temp 98.3; Pulse Ox 97% ; vc1 23:52 BP 108 / 79; vc1 02/28 01:37 BP 126 / 86; Pulse 70; Resp 16; Pulse Ox 94% on R/A; sg5 02:38 BP 134 / 86; Pulse 74; Resp 16; Pulse Ox 94% on R/A; sg5 03:27 BP 106 / 65; Pulse 70; Resp 16; Pulse Ox 95% on R/A; sg5 05:33 BP 125 / 84; Pulse 74; Resp 18; Pulse Ox 93% on R/A; sg5 02/27 23:45 Body Mass Index 44.21 (147.87 kg, 182.88 cm) vc1 02/27 23:45 Pain Scale: Adult vc1 [place] Coma Score: 02/27 23:48 Eye Response: spontaneous(4). Motor Response: obeys commands(6). Verbal Response: vc1 oriented(5). Total: 15. ED Course: 23:16 Patient arrived in ED. es 23:47 Triage completed. vc1 23:48 Arm band placed on left wrist. vc1 02/28 00:21 Nabor Butler PA is PHCP. cp 00:21 Nabor Alejo MD is Attending Physician. cp 00:55 XRAY Chest (1 view) In Process Unspecified. EDMS 01:02 CT Head Brain wo Cont In Process Unspecified. EDMS 01:34 Bernadette Archer, RN is Primary Nurse. sg5 01:40 Inserted saline lock: 22 gauge in right forearm, using aseptic technique. Blood sm8 collected. 01:41 Basic Metabolic Panel Sent. sm8 01:41 CBC with Diff Sent. sm8 01:41 Magnesium Sent. sm8 01:41 PT-INR Sent. sm8 01:41 Troponin HS Sent. sm8 02:14 Urinalysis W/Microscopic Sent. sm8 02:42 Jose Tan FNP-C is Hospitalizing Provider. cp 02:43 Deandra Abreu MD is Hospitalizing Provider. la1 03:08 CT Aorta for Dissection In Process Unspecified. EDMS 05:18 called [facility] transfer center to request transfer to [facility] with Dr. Wallace Hinds.([phone]). 05:41 Ortho 0523 [facility] accepted to ER ---Dr. Leonora Aiken admin approval candelaria Trejo RN. 06:33 Patient has correct armband on for positive identification. Bed in low position. Call sg5 light in reach. Side rails up X 1. Adult w/ patient. Valuables Left with patient. Seizure precautions initiated. Provided Education on: need for transfer. 06:33 No provider procedures requiring assistance completed. Patient transferred, IV remains sg5 in place. Administered Medications: No medications were administered Medication: 06:35 VIS not applicable for this client. sg5 Outcome: 02:42 Decision to Hospitalize by Provider. cp 04:58 ER care complete, transfer ordered by . sudha 06:33 Transferred by ground EMS Note: [facility] report given to BELKYS Andrews sg5 06:33 Condition: good 06:33 Instructed on the need for transfer. 06:35 Patient left the ED. sg5 Signatures: Dispatcher [employer] EDMS Nabor Alejo MD MD cha Pinkerton, Shawna sp Salyer, Edna es Attema, Lee, CAUSTIC PUMP OPERATOR-C CAUSTIC PUMP OPERATOR-Cla1 Nabor Butler, Cristiane Wong cp, RN RN vc1 Bernadette Archer RN RN sg5 Florence Armendariz 8
--- NOTE | 2023-02-28 02:43 | EDPHYS ---
Physician Documentation [facility] Name: Emiliano Verdugo Age: 67 yrs Sex: Male : 1955 Arrival Date: 02/27/2023 Time: 23:11 Bed 20 Private MD: ED Physician Nabor Alejo HPI: 02/28 00:25 This 67 yrs old Male presents to ER via Ambulatory with complaints of Seizure. cp 00:25 The patient presents after having a possible seizure episode, no post-ictal period is cp described, blank stare was witnessed, patient became stiff and hands were shaking. 00:25 Patient is a 67-year-old male with past medical history significant for hypertension cp and aortic aneurysm who presents to the emergency department with concern for possible seizure. Patient reports he was sitting down and having dinner when his observed him leaning back with eyes open, he became tense and hand started shaking. Reports this lasted for about 1 to 2-minute and patient immediately came to and was responsive. Patient denies having headache, denies chest pain and/or abdominal pain prior to episode. There was no incontinence and patient denies any previous history of seizures. Historical: - Allergies: 02/27 23:48 No Known Allergies; vc1 - PMHx: 23:48 aortic aneurysm; Hypertensive disorder; vc1 - PSHx: 23:48 Gurinder hip replacement; knee sx; Neck Sx (herniated disc); Open heart surgery 10/2021; vc1 - Immunization history:: Client reports having NOT received the Covid vaccine. - Social history:: Smoking status: . ROS: 02/28 00:30 Constitutional: Negative for body aches, chills, fever, poor PO intake. cp 00:30 Eyes: Negative for injury, pain, redness, and discharge. cp 00:30 ENT: Negative for drainage from ear(s), ear pain, sore throat, difficulty swallowing, difficulty handling secretions. 00:30 Neck: Negative for pain with movement, pain at rest, stiffness. 00:30 Cardiovascular: Negative for chest pain, edema, palpitations. 00:30 Respiratory: Negative for cough, shortness of breath, wheezing. 00:30 Abdomen/GI: Negative for abdominal pain, vomiting, diarrhea, constipation. 00:30 : Negative for urinary symptoms. 00:30 Neuro: Positive for syncope, Negative for altered mental status, dizziness, headache, weakness. 00:30 All other systems are negative. Exam: 00:35 Constitutional: The patient appears in no acute distress, alert, awake, comfortable, cp non-diaphoretic, non-toxic, well developed, well nourished. 00:35 Head/Face: Normocephalic, atraumatic. cp 00:35 Eyes: Periorbital structures: appear normal, Pupils: equal, round, and reactive to light and accomodation, Extraocular movements: intact throughout, Conjunctiva: normal, no exudate, no injection, Sclera: no appreciated abnormality, Lids and lashes: appear normal, bilaterally. 00:35 ENT: External ear(s): are unremarkable, Nose: is normal, Mouth: Lips: moist, Oral mucosa: pink and intact, moist, Posterior pharynx: is normal, airway is patent, no erythema, no exudate. 00:35 Neck: ROM/movement: is normal, is supple, without pain, no range of motions limitations, no nuchal rigidity. 00:35 Chest/axilla: Inspection: normal. 00:35 Cardiovascular: Rate: normal, Rhythm: regular, Edema: is not appreciated, JVD: is not appreciated. 00:35 Respiratory: the patient does not display signs of respiratory distress, Respirations: normal, no use of accessory muscles, no retractions, labored breathing, is not present, Breath sounds: are clear throughout, no decreased breath sounds, no stridor, no wheezing. 00:35 Abdomen/GI: Exam negative for discomfort, distension, guarding, Inspection: obese 00:35 Back: pain, is absent, ROM is normal. 00:35 Skin: cellulitis, is not appreciated, no rash present. 00:35 Neuro: Orientation: to person, place \T\ time. Mentation: is normal, Motor: moves all fours, strength is normal, Sensation: is normal. 02:09 ECG was reviewed by the Attending Physician. cp Vital Signs: 02/27 23:45 Weight 147.87 kg; Height 6 ft. 0 in. ; Pain 0/10; vc1 23:49 Pulse 73; Resp 18; Temp 98.3; Pulse Ox 97% ; vc1 23:52 BP 108 / 79; vc1 02/28 01:37 BP 126 / 86; Pulse 70; Resp 16; Pulse Ox 94% on R/A; sg5 02:38 BP 134 / 86; Pulse 74; Resp 16; Pulse Ox 94% on R/A; sg5 03:27 BP 106 / 65; Pulse 70; Resp 16; Pulse Ox 95% on R/A; sg5 05:33 BP 125 / 84; Pulse 74; Resp 18; Pulse Ox 93% on R/A; sg5 02/27 23:45 Body Mass Index 44.21 (147.87 kg, 182.88 cm) vc1 02/27 23:45 Pain Scale: Adult vc1 [place] Coma Score: 02/27 23:48 Eye Response: spontaneous(4). Motor Response: obeys commands(6). Verbal Response: vc1 oriented(5). Total: 15. MDM: 02/28 00:21 Patient medically screened. cp 02:35 Data reviewed: vital signs, nurses notes, lab test result(s), EKG, radiologic studies, cp CT scan, plain films. 02:35 Differential diagnosis: cerebral vascular accident, cardiac arrhythmia, seizure, TIA. Management of patient was discussed with the following: Hospitalist: Jose Tan NP who requests CT aorta. 02/28 00:40 Order name: Basic Metabolic Panel; Complete Time: 03:45 cp 02/28 02:26 Interpretation: Normal except: CL 109; CRE 1.40; GFR 56. cp 02/28 00:40 Order name: CBC with Diff; Complete Time: 02:01 cp 02/28 02:01 Interpretation: Normal except: DAYRON% 80.8; LYM% 10.1. cp 02/28 00:40 Order name: Magnesium; Complete Time: 03:45 cp 02/28 00:40 Order name: PT-INR; Complete Time: 02:01 cp 02/28 02:01 Interpretation: Reviewed. cp 02/28 00:40 Order name: Troponin HS; Complete Time: 03:45 cp 02/28 02:26 Interpretation: Reviewed. cp 02/28 00:40 Order name: Urinalysis W/Microscopic; Complete Time: 02:26 cp 02/28 02:26 Interpretation: Normal except: UBLD 1+; UPROT TRACE; URBC 21-50. cp 02/28 03:21 Order name: Liver (Hepatic) Function; Complete Time: 03:45 EDMS 02/28 04:02 Order name: Troponin High Sensitivity; Complete Time: 04:52 la1 02/28 00:38 Order name: CT Head Brain wo Cont; Complete Time: 02:41 cp 02/28 00:40 Order name: XRAY Chest (1 view); Complete Time: 02:41 cp 02/28 02:35 Order name: CT Aorta for Dissection; Complete Time: 02:41 cp 02/28 00:40 Order name: EKG; Complete Time: 00:40 cp 02/28 00:40 Order name: Cardiac monitoring; Complete Time: 02:08 cp 02/28 00:40 Order name: EKG - Nurse/Tech; Complete Time: 02:08 cp 02/28 00:40 Order name: IV Saline Lock; Complete Time: 01:40 cp 02/28 00:40 Order name: Labs collected and sent; Complete Time: 01:40 cp 02/28 00:40 Order name: O2 Per Protocol; Complete Time: 02:14 cp 02/28 00:40 Order name: O2 Sat Monitoring; Complete Time: 01:41 cp 02/28 03:46 Order name: EKG - Nurse/Tech; Complete Time: 03:54 la1 EC:09 Rate is 64 beats/min. Rhythm is regular. OR interval is prolonged at 204 msec. QRS cp interval is normal. QT interval is normal. T waves are Inverted in leads aVL, aVR, V2. Interpreted by me. Reviewed by me. Administered Medications: No medications were administered Disposition Summary: 02/28/23 04:58 Transfer Ordered Transfer Location: Other Acute Care Facility sudha Reason: Higher level of care sudha Condition: Fair(02/28/23 04:58) sudha Problem: new(02/28/23 04:58) sudha Symptoms: have improved(02/28/23 04:58) sudha Accepting Physician: DR Wallace BONE(02/28/23 06:35) sg5 Diagnosis - Syncope Near sudha - Obesity, unspecified sudha Forms: - Medication Reconciliation Form sudha - SBAR form sudha Signatures: Dispatcher [employer] EDNabor Whatley MD MD cha Attema, Lee, PREPARATION ROOM WORKER-C PREPARATION ROOM WORKER-Cla1 Nabor Butler PA PA cp Calcote, Vanessa RN RN vc1 Bernadette Archer RN RN sg5 Corrections: (The following items were deleted from the chart) 02:44 02:42 Jose Tan cp la1 03:20 03:15 HEPATIC FUNCTION+C.LAB.BRZ ordered. EDMS EDMS 04:57 02:42 Observation cp sudha 04:57 02:42 Telemetry/MedSurg (observation) cp sudha 04:57 02:42 Stable cp sudha 04:57 02:42 new cp sudha 04:57 02:42 have improved cp sudha 04:57 02:42 Standard cp sudha 04:57 02:42 cp sudha 04:57 02:42 Syncope cp sudha 04:57 02:44 Deandra Abreu la1 sudha 06:35 04:58 DR Wallace BONE sudha sg5
[2023-02-28 03:44] LABS: Albumin 3.9 g/dL (3.4-5.0); Bilirubin Direct 0.1 mg/dL (0-0.2); Bilirubin Indirect, Calculated 0.5 mg/dL (0.2-0.8); Bilirubin Total 0.6 mg/dL (0.2-1.0); Protein, Total 7.1 g/dL (6.4-8.2)
[2023-02-28 06:39] VITALS: TEMP 98.3
[2023-02-28 06:44] VITALS: BP 125/84; O2SAT 93
--- NOTE | 2023-02-28 12:02 | RAD REPORT ---
EXAM DESCRIPTION: RAD - Chest Single View - 02/28/2023 12:53 am CLINICAL HISTORY: 67 years, Male, syncope COMPARISON: None. FINDINGS: Single view of the chest was obtained portable. No prior films are available for compariso n. The cardiomediastinal silhouette demonstrate to be unremarkable. Sternotomy wires metallic ring wi thin the aortic valve corresponding to previous valvular replacement. There is mild elevation of the right hemidiaphragm.. The heart is not enlarged. The thoracic aorta is unremarkable. The pulmonary va sculature is normal distribution. Costophrenic angles are sharp. No areas of consolidation or herbert s are seen. The rest of the soft tissue and bony structures demonstrate to be unremarkable. IMPRESSION: No acute cardiopulmonary disease seen. Status post aortic valve replacement. Electronically signed by: Joaquim Lopez MD 02/28/2023 1:10 AM CDT Due to temporary technical issues with the PACS/Fluency reporting system, reports are being signed by the in house radiologists without review as a courtesy to insure prompt reporting. The interpreting radiologist is fully responsible for the content of the report.
--- NOTE | 2023-02-28 12:10 | RAD REPORT ---
EXAM DESCRIPTION: CT - Head Brain Wo Cont - 02/28/2023 6:33 am CLINICAL HISTORY: 67 years, Male, SYNCOPE COMPARISON None FINDINGS: Multiple transaxial tomograms of the brain were obtained from the base of the skull to the vertex without contrast. 2-D multiplanar reformats and the coronal and sagittal plane were performed and reviewed. This exam was performed according to our departmental dose-optimization protocol, which includes auto mated exposure control, adjustment of the mA and/or kV according to patient size and/or use of iterat everett reconstruction technique. Brain parenchyma as well as the lane and white matter differentiation demonstrate to be unremarkable. There is no midline shift and/or mass effect. There is no evidence for acute hemorrhage. There are n o focal areas of hypodensities. Lateral ventricles and cisterns displace normal appearance. No intr a or extra axial fluid collections were seen. The calvarium is intact with no evidence for fracture. The visualized portions of the paranasal sinuses and orbits demonstrate to be clear. IMPRESSION: No acute intracranial hemorrhage identified. Unremarkable CT scan of the head without contrast. Electronically signed by: Joaquim Lopez MD 02/28/2023 1:11 AM CDT Due to temporary technical issues with the PACS/Fluency reporting system, reports are being signed by the in house radiologists without review as a courtesy to insure prompt reporting. The interpreting radiologist is fully responsible for the content of the report.
--- NOTE | 2023-02-28 12:20 | RAD REPORT ---
EXAM DESCRIPTION: CT - Angio Aorta For Dissection - 02/28/2023 6:31 am CLINICAL HISTORY: Syncope TECHNIQUE: Contiguous axial images obtained through the chest, abdomen and pelvis during angiographi c phase following the uneventful administration of IV contrast. Sagittal and coronal reformatted imag es were provided. 3-D MIP reformatted images were provided. This exam was performed according to our departmental dose-optimization program, which includes autom ated exposure control, adjustment of the mA and/or kV according to patient size and/or use of iterati ve reconstruction technique. COMPARISON: No prior exams provided for comparison. 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 There is atherosclerotic plaque and no evidence of dissection. 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 Lungs: Scattered areas of groundglass airspace disease and mildly thickened interlobular septal lines suggests mild interstitial pulmonary edema. Images are degraded by respiratory motion artifact. Pleura: No effusion. No pneumothorax. Heart and pericardium: The heart is normal in size. No pericardial effusion. Mediastinum and carlton: No pathologically enlarged lymph nodes. Lower neck and chest wall: Status post median sternotomy. Vessels: No pulmonary arterial filling defects. No thoracic aortic aneurysm. Bones: Unremarkable Abdominal aorta: No aneurysm. No dissection. Celiac trunk: No significant stenosis or occlusion. SMA: No significant stenosis or occlusion. MELINDA: No significant stenosis or occlusion. Renal arteries: No significant stenosis or occlusion. Iliac arteries: No significant stenosis or occlusion. 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 Liver: Unremarkable Gallbladder and biliary system: Unremarkable Pancreas: Unremarkable Spleen: Unremarkable Adrenal: Unremarkable Kidneys: Nonobstructive bilateral renal stones. GI: No obstruction. No appreciable mucosal thickening. Appendix: No findings to suggest acute appendicitis. Urinary bladder: Unremarkable Reproductive: Unremarkable as visualized Lymph nodes: No pathologically enlarged lymph nodes. Peritoneum: No focal fluid collection. No free air. Abdominal wall: Unremarkable Bones: Prominent artifact in the lower pelvis secondary to bilateral hip prosthesis. IMPRESSION: 1. Mild aneurysmal dilatation of the ascending segment of the thoracic aorta measuring approximately 4.3 cm. No evidence of dissection. 2. Scattered areas of groundglass airspace disease and mildly thickened interlobular septal lines s uggests mild interstitial pulmonary edema. 3. Nonobstructive bilateral renal stones. Electronically signed by: Duran Castillo MD 02/28/2023 4:31 AM CDT Due to temporary technical issues with the PACS/Fluency reporting system, reports are being signed by the in house radiologists without review as a courtesy to insure prompt reporting. The interpreting radiologist is fully responsible for the content of the report.
--- NOTE | 2023-03-01 16:48 | EKG ---
Test Date: 2023-02-28 Test Time: 03:51:20 Endo Tech: LA MEASUREMENT RESULTS: Intervals: Rate: 66 TN: 204 QRSD: 102 QT: 416 QTc: 436 [place]: P: 53 TN: 204 QRS: 44 T: 98 INTERPRETIVE STATEMENTS: Normal sinus rhythm Possible Left atrial enlargement ST & T wave abnormality, consider lateral ischemia Abnormal ECG Compared to ECG 04/17/2021 17:07:59 ST (T wave) deviation now present Possible ischemia now present Electronically Signed On 03-01-23 16:44:32 CDT by Vikash Reese
--- NOTE | 2023-03-01 16:49 | EKG ---
Test Date: 2023-02-28 Test Time: 02:02:28 Mail Clerk: [place] MEASUREMENT RESULTS: Intervals: Rate: 64 MI: 204 QRSD: 100 QT: 424 QTc: 437 [place]: P: 48 MI: 204 QRS: 37 T: 93 INTERPRETIVE STATEMENTS: Normal sinus rhythm Possible Left atrial enlargement Nonspecific ST and T wave abnormality Abnormal ECG Compared to ECG 04/17/2021 17:07:59 ST (T wave) deviation now present Electronically Signed On 03-01-23 16:44:44 CDT by Vikash Reese
== END 2023-02-28 06:35 ==
LOC: ER 23:11
DX: R55 Syncope and collapse (principal); E66.9 Obesity, unspecified; Z68.41 Body mass index [BMI] 40.0-44.9, adult; I10 Essential (primary) hypertension; Z28.310 Unvaccinated for COVID-19; Z96.643 Presence of artificial hip joint, bilateral
CPT/HCPCS: 93005 ×2; 85025; 81001; 80048; 36415; 83735; 85610; 80076; 84484 ×2; 70450; 71275; 74175; 71045; 99285; Q9967